=== PATIENT | female | born 1950 | race Caucasian/White ===

== ENCOUNTER 2023-10-17 10:25 | Outpatient (OUT) | payer MEDICARE, OTHER, SELFPAY ==
--- NOTE | 2023-10-17 10:26 | VEIN_ITS ---
Patient Name: JANN FUALKNER MR#: [id number] : 1950 Exam Date: 10/17/2023 Ordering Doctor: MATT DOMINGUEZ RADIOLOGY REPORT PROCEDURE: VC EXT VENOUS REFLUX AYANNA LMTD COMPARISON: None. INDICATIONS: I83.813 Pain due to varicose veins of bilateral legs TECHNIQUE: Duplex imaging of the lower extremity to assess the deep and superficial venous system for the presence of deep or superficial venous incompetence and to document the location and severity of disease. The study includes evaluation of the great saphenous vein (GSV), anterior accessory saphenous vein (AASV) and small saphenous vein (SSV). Patient scanned in reverse Trendelenburg and standing. FINDINGS: RIGHT LOWER EXTREMITY: Saphenofemoral Junction Reflux: Yes 10.4mm 1.6 sec GSV: Diam (mm) Reflux/ Time (sec) Proximal Thigh 6.0 Yes 0.9 Mid Thigh 4.7 Yes 2.3 Distal Thigh 5.0 No Prox Calf 4.6 No Mid Calf 2.4 Yes 1.6 Saphenopopliteal Junction Reflux: 3.2mm No SSV: Proximal Calf 3.0 No Mid Calf 1.9 No AASV: Proximal Thigh 3.8 No Mid Thigh 2.6 No Distal Thigh Thrombi: No acute or chronic thrombus visualized Compressibility: Normal Flow: Normal Preforator: Dist/med calf (area of wound) 3.5mm with 0.8s reflux. Mid/med calf 3.7mm with 1.7s reflux. Tech Note: Incompetent GSV. Patent varicose vein mid/med calf 3.5mm with 2.6s reflux. Patent varicose vein prox/ant 3.2mm with 1.8s reflux. LEFT LOWER EXTREMITY: Saphenofemoral Junction Reflux: Yes 7.3 mm 2.0 sec GSV: Diam (mm) Reflux/Time (sec) Proximal Thigh 6.2 Yes 0.6 Mid Thigh 3.7 No Distal Thigh 4.6 No Prox Calf 4.2 No Mid Calf 1.0 No Saphenopopliteal Junction Relux: 1.6 mm No SSV: Proximal Calf 1.6 No Mid Calf 1.4 No AASV: Proximal Thigh 2.8 Yes 1.1 Mid Thigh 1.8 No Distal Thigh Thrombi: No acute or chronic thrombus visualized Compressibility: Normal Flow: Normal Tractor Trailer Mechanic: Mid/posterior 3.0mm with 0s reflux. Tech Note: Incompetent GSV. Patent mid/med calf 2.0mm with 0s reflux. CONCLUSION: 1. Abnormally dilated and incompetent right great saphenous vein. 2. Dilated and incompetent icing machine operator vein within distal lower right leg corresponding to patient's open wound. Dictated by: Jordi Watters M.D. on 10/17/2023 at 12:25 Approved by: Jordi Watters M.D. on 10/17/2023 at 13:12
--- NOTE | 2023-10-17 10:26 | VEIN_ITS ---
Patient Name: JANN FAULKNER MR#: [id number] : 1950 Exam Date: 10/17/2023 Ordering Doctor: MATT DOMINGUEZ RADIOLOGY REPORT PROCEDURE: FACILITY [facility] - OFFICE VISIT INITIAL COMPARISON: None. PROGRESS NOTES: [age] year old female who presents with a 5 year history of muscle cramping, leg pain, swelling, edema with recent development of slow healing/nonhealing ulcer. The patient's right leg symptoms are worse than the left. There has been a progression of symptoms over time. This increases with prolonged leg dependency. The patient describes an improvement with rest, elevation, sports stockings.. The patient denies any signs and symptoms to suggest arterial ischemia. The patient describes a family history of diabetes mellitus, chronic lung disease, kidney failure. The patient has drinking and smoking history of : None. Patient has a past medical history significant for hypertension, asthma, rheumatoid arthritis. The patient denies a history of deep venous thrombus or pulmonary embolus. See separate history and physical for medication list. No prior treatment for varicose or spider veins. Current use of compression stockings. After review of nurse notes, history and physical exam I discussed at length the pathophysiology of venous hypertension and possible treatments, therapies and strategies available. We discussed at length the importance of elevating the lower extremities above the level of the heart, increased physical activity and compression stocking use. Ultrasound venous reflux study performed today was discussed at length with the patient. The report demonstrates dilating incompetent right great saphenous vein and a dilated an incompetent horticultural nursery assistant vein within distal lower right leg deep to stasis ulcer. PHYSICAL EXAM: The right leg demonstrates no significant varicosities, scattered spider veins, medial lower right leg open ulceration, mild edema, prominent skin discoloration. The left leg demonstrates no significant varicosities, scattered spider veins, no ulceration, mild edema, significant skin discoloration. Both thighs, legs and feet were symmetrically warm to the touch. Good posterior tibial and dorsalis pedis pulses were present bilaterally. VEIN/ Facility [facility] Comprehensive IMPRESSION: 1. Right lower extremity venous insufficiency 2. Right lower extremity varicose veins 3. Bilateral mild lower extremity subcutaneous edema 4. No flow significant arterial disease 5. CEAP: C6, AP, AP, MO PLAN: 1. Continued use of compression stockings 2. Elevated legs and increased physical activity symptomatic relief 3. Endovenous laser ablation of right great saphenous vein and distal lower right extremity horticultural nursery assistant vein. 4. Bilateral lower extremity microfoam chemical ablation. Nurse notes, history and physical were reviewed and confirmed, see attached forms. The nurse was present throughout the physical exam and consultation Dictated by: Jordi Watters M.D. on 10/17/2023 at 13:12 Approved by: Jordi Watters M.D. on 10/17/2023 at 13:27
== END 2023-10-17 10:26 | disposition home or self-care (01) ==
PROVIDERS: PCP Podiatrist Foot & Ankle Surgery; Visit Provider Podiatrist Foot & Ankle Surgery
DX: I83.813 Varicose veins of bilateral lower extremities with pain (principal); Z87.2 Personal history of diseases of the skin and subcutaneous tissue
CPT/HCPCS: 93970; G0463

== ENCOUNTER 2024-03-22 12:57 | Outpatient (OUT) | payer MEDICARE, OTHER, SELFPAY ==
--- NOTE | 2024-03-18 08:42 | P.DS_ITS ---
Discharge Plan Discharge Disposition: Home, Self-Care Outpatient Diagnostics: VC EXT Venous RT LMTD (Routine) Timeframe: 2 Weeks Facility: [facility] - Location: Vein Center Ordered By: Ryan Burris VC Facility EST LMTD (Routine) Timeframe: 2 Weeks Facility: [facility] - Location: Vein Center Ordered By: Ryan Burris VC Endovenous Ablation 1VeinRT (Routine) Timeframe: 2 Weeks Facility: [facility] - Location: Vein Center Ordered By: Ryan Burris Follow Up Appointments: 03/29/2024 Plan of Treatment: f/u evaluation with physician along with right leg limited u/s Patient Instructions: Endovenous Ablation (DC) Print Language: Hungarian Discharge Date/Time: 03/22/24 13:50
--- NOTE | 2024-03-18 08:42 | VEINCLINIC_ITS ---
Vital Signs 03/18/24 08:42 03/22/24 13:08 03/22/24 13:44 Height 5 ft Weight 108.862 kg Waist Circumference 5 ft 6 in BP 150/70 H BP Location Left Brachial BP Position Sitting BP Cuff Size Adult BP Source Manual Cuff Respiration 20 Pulse 102 H Pulse Source Monitor Pulse Oximetry (%) 96 Oxygen Delivery Method Room Air Comment The patient's blood pressure is elevated. Varicose Veins Patient is a 73 year old female with c/o leg pain, swelling, and muscle cramps. Symptoms are bilateral right leg > left leg. Pain rated at a 2 on a scale of 1-10. Onset 5 years ago. Patient has worn bilateral leg knee high compression stockings in August of 2023 secondary to a bout with cellulitis along with a non- healing wound to right lower leg. thigh: bilateral (right> left leg), knee: bilateral, calf: bilateral, ankle: bilateral and shafer: bilateral aching, cramping, dull and tender 2 5 years Worsened in recent months: Yes standing and walking analgesics, elevating extremities, compression stockings and exercise Reports muscle spasms of leg, fatigue, heaviness, limb pain, edema and leg edema History of lower extremity trauma: No Superficial thrombophlebitis: No Family history of varicose veins: yes Has patient had previous lower extremity venous surgery: No Patient has previously received the following treatment(s) for lower extremity varicose veins: Reports none Does patient have a history of : yes Does patient intend to have future pregnancies: no Has patient had lower extremity venous scan with relux testing: Yes Support hose used: Yes Problems walking or doing physical activity: Yes How does it affect you: often has to stop activity rest and elevate Do you walk much: Yes Do you stand much: Yes Review of Systems ROS Narrative I, Ryan Burris MD personally performed the services described in this documentation, as scribed by Maciel Hall RN in my presence and it is both accurate and complete. I, Maciel Hall RN, am scribing for, and in the presence of, Dr. Ryan Burris and in the presence of the patient. Status of ROS 10 or more systems reviewed and unremark able except as noted in history and below Cardiovascular Reports: edema Integumentary/Breast Reports: itching, redness, skin pain, skin tenderness, skin swelling, new lesion, changing lesion, non-healing lesion and changes in skin color Neurological Reports: numbness in extremities and weakness in extremities Hematologic/Lymphatic Reports: easy bruising and easy bleeding PFSH PFSH Medical History (Updated 03/18/24 @ 08:50 by Maciel Hall) Osteoarthritis ?M19.90 - Unspecified osteoarthritis, unspecified site (ICD-10) Rheumatoid arthritis ?M06.9 - Rheumatoid arthritis, unspecified (ICD-10) Coronary artery disease ?I25.10 - Atherosclerotic heart disease of [place] coronary artery without angina pectoris (ICD-10) Asthma ?J45.909 - Unspecified asthma, uncomplicated (ICD-10) Hypertension ?I10 - Essential (primary) hypertension (ICD-10) Varicose veins of bilateral lower extremities with pain ?I83.813 - Varicose veins of bilateral lower extremities with pain (ICD-10) Surgical History (Updated 03/22/24 @ 13:41 by Maciel Hall) Status post laser ablation of incompetent vein ?Z98.890 - Other specified postprocedural states (ICD-10) History of tonsillectomy and adenoidectomy ?Z90.89 - Acquired absence of other organs (ICD-10) History of bilateral knee replacement ?Z96.653 - Presence of artificial knee joint, bilateral (ICD-10) History of appendectomy ?Z90.49 - Acquired absence of other specified parts of digestive tract (ICD- 10) H/O: hysterectomy ?Z90.710 - Acquired absence of both cervix and uterus (ICD-10) Family History (Updated 03/18/24 @ 08:52 by Maciel Hall) Other Family history of COPD (chronic obstructive pulmonary disease) Family history of diabetes mellitus Kidney failure Social History (Updated 03/18/24 @ 08:52 by Maciel Hall) Within the past year, how often did you have a drink containing alcohol: never Score interpretation: A score less than 3 is consistent with normal alcohol consumption. Smoking status: Never smoker Non-prescribed substance use: denies use Meds Home Medications and Allergies Home Medications ?Medication ?Instructions ?Recorded ?Confirmed ?Type amlodipine 10 mg tablet 10 mg PO DAILY 03/18/24 03/18/24 History calcium tab PO 03/18/24 History carbonate,citrate-magnesium oxide 200 mg calcium-50 mg tablet folic acid 1 mg tablet 1,000 mcg PO DAILY 03/18/24 03/18/24 History furosemide 20 mg tablet (Lasix) 20 mg PO DAILY 03/18/24 03/18/24 History lisinopril 20 mg tablet 10 mg PO DAILY 03/18/24 03/18/24 History meloxicam 15 mg tablet 15 mg PO DAILY 03/18/24 03/18/24 History methotrexate 2.5 mg/mL oral 2.5 mg PO DAILY 03/18/24 03/18/24 History solution ofloxacin .Route 03/18/24 History potassium chloride 10 mEq 10 meq PO DAILY 03/18/24 03/18/24 History tablet,extended release (Klor-Con) Allergies Allergy/AdvReac Type Severity Reaction Status Date / Time sulfamethoxazole Allergy Intermediate Unknown Verified 03/18/24 08:58 [From Bactrim] trimethoprim [From Bactrim] Allergy Intermediate Unknown Verified 03/18/24 08:58 loracarbef [From Lorabid] Allergy Unknown Verified 03/18/24 08:58 statins Allergy Intermediate Joint Pain Uncoded 03/18/24 08:58 Exam Narrative Exam Narrative: Right mid medial lower leg ulcer 2cmx1.5cmx0.5cm reddened, well approximated with no drainage noted. Ryan Crystal MD personally performed the services described in this documentation, as scribed by Maciel Hall RN in my presence and it is both accurate and complete. Maciel Crystal RN, am scribing for, and in the presence of, Dr. Ryan Burris and in the presence of the patient. Constitutional Documenting provider has reviewed patient's vital signs: yes Common normals: oriented x3 Nutritional appearance: overweight Cardio Peripheral pulses: posterior tibial pulses present and dorsalis pedis pulses present Extremity Common normals: normal capillary refill General: calf tenderness and edema Right lower extremity: lower leg Right lower leg: inspection and palpation Left lower extremity: lower leg Left lower leg: inspection and palpation Neuro Common normals: oriented x3 Assessment and Plan Assessment and Plan (1) Varicose veins of bilateral lower extremities with pain: Plan f/u evaluation with physician along with right leg limited u/s Ryan Crystal MD personally performed the services described in this documentation, as scribed by Maciel Hall RN in my presence and it is both accurate and complete. Maciel Crystal RN, am scribing for, and in the presence of, Dr. Ryan Burris and in the presence of the patient. Procedures Procedure Instructions Procedures Plan of care: Risks and benefits of the procedure were discussed at length and informed written consent was obtained.? Time-out completed for verification of correct patient, procedure and site.? Staff present during time-out: Maciel Hall RN,? Ryan Burris MD, Maribell Freire RDMS. Time Out Time__1348 Patient prepped and procedure performed in usual sterile fashion. Risk of injury related to use of Diode laser and/or laser devices? __CR___ ? Serial number of laser used :? [id number] Control panel self test performed, electrical cords in good condition, floor is dry, basin of water available, fire extinguisher in close proximity_CR__ Polycarbonate goggles available and Laser warning signs outside of doors___CR__ Eye protection provided to patient and staff in room_CR___ Use of laser retardant drapes and dull blackened instruments as directed__CR___ Use of nonflammable prep solutions and use of saline soaked sponges to protect tissues as indicated _CR___ Length __50 cm Laser operated by _Dr. Burris Physician verbal confirmation laser locked in place__CR__ Laser start time (date and time) _03/22/2024@__1359 Laser stop time(date and time) __03/22/2024@__1405 Clark _8.0___ Average laser use __2385 Joules Average laser use_298 seconds Pulse continuous ___CR_? Pulse intermittent ___ Amount of Tumescent used _275cc Evaluated patient for signs and symptoms of electrical injury __CR___ ? Skin clear at insertion site __CR___ Patient tolerated procedure well.? Right leg Coban dressing applied to access site.? Applied right thigh high leg compression stocking. Will return on 03/29/2024 for right leg limited venous ultrasound and exam.
[2024-03-22] MEDS: LIDOCAINE HCL 1% 100 MG/10 ML MDV INJ (13:00)
[2024-03-22] MEDS: 0.9 % SODIUM CHLORIDE 500 ML, LIDOCAINE HCL 20 ML, SODIUM BICARBONATE 10 MEQ INJ (13:00)
--- NOTE | 2024-03-22 13:03 | VEIN_ITS ---
The [address] [address] Patient Name: JANN FAULKNER MRN: [id number] date: 1950 Sex: F Assigned Patient Location: Current Patient Location: Accession/Order Number: [id number] Exam Date: 03/22/2024 13:07 Report Date: 03/22/2024 14:52 At the request of: SLADE HARGROVE Procedure: VC Endovenous Ablation 1VeinRT EXAMINATION: VC Endovenous Ablation 1Vein right great saphenous vein HISTORY: I83.813 Bilateral leg painful varicose veins COMPARISON: No relevant comparison available. TECHNIQUE: The risks and benefits of the procedure had been previously discussed, and were rediscussed at length. Informed written consent was obtained. Maribell Freire and Maciel Hall assisted. Time out procedure was performed. The right lower extremity was prepared and draped in the usual sterile fashion to allow knee flexion in the sterile field. Duplex ultrasound probe was draped in a sterile cover, sterile transmission gel was used. Venous mapping was performed with the areas of dilation and large tributaries marked. The total length was 50 cm from the entry mid calf to 3 cm below the saphenofemoral junction. The diameter of the greater saphenous vein ranged from 5-7 mm. A 30 gauge needle and 1% buffered lidocaine was used to anesthetize the entry site. A 4 mm incision was made with a scalpel and the saphenous vein was entered percutaneously under direct ultrasound guidance with a micropuncture set, a single stick was successful in gaining access. A micro-guide wire was inserted and the needle removed. A micro-set including a dilator was inserted over the microwire and the needle and dilator were removed. A 0.018 guide wire was inserted through the micro-set and threaded through the saphenous vein to the saphenofemoral junction. The dilator was removed and an introducer sheath was inserted over the wire until the end of the sheath entered the saphenofemoral junction. The dilator and wire were removed and the 600 micron fiber was introduced and placed and positioned so that it extended beyond the sheath and was 3 cm peripheral to the saphenofemoral femoral junction. Final position of the fiber was determined by ultrasound guidance and duplex imaging. Tumescent anesthetic was delivered by ultrasound guidance. 275 cc of fluid was delivered along the entire course of the saphenous vein. The solution consisted of 1000 cc of normal saline with 40 mL of 1% lidocaine and 20 mL of sodium bicarbonate. A final positioning check was made. The energy source was turned on by means of the foot pedal and the fiber and sheath were withdrawn. The total number of Joules delivered was 2385. The laser was active for 298 seconds under continuous pulse, average laser use of 8 J. Laser start time 1:59 PM 03/22/2024 . Laser stop time 2:05 PM 03/22/2024 . A duplex ultrasound revealed compressibility and flow at the saphenofemoral junction immediately after the procedure. Hemostasis at the access site was achieved. The skin incision of the saphenous vein was closed with a 4 x 4. A compression stocking was applied. Postop instructions were given. A follow up appointment was recommended and scheduled. The patient tolerated the procedure well and was discharged in good condition . VEIN/VC Endovenous Ablation 1VeinRT IMPRESSION: Technically successful endovenous laser ablation right great saphenous vein Electronically authenticated by: SLADE HARGROVE Date: 03/22/2024 14:52
[2024-03-22 13:08] VITALS: BP 150/70; PULSE 102; O2SAT 96
== END 2024-03-22 13:50 | disposition home or self-care (01) ==
LOC: VC 12:58
PROVIDERS: PCP Radiology Diagnostic Radiology; Visit Provider Radiology Diagnostic Radiology
DX: I83.813 Varicose veins of bilateral lower extremities with pain (principal)
CPT/HCPCS: 36478

== ENCOUNTER 2024-03-29 11:20 | Outpatient (OUT) | payer MEDICARE, OTHER, SELFPAY ==
--- NOTE | 2024-03-29 07:34 | V.VEINS.HP ---
Vital Signs 03/29/24 11:35 Height 5 ft Weight 108 kg BMI 46.5 Varicose Veins Patient in today for follow up ultrasound of right lower extremity following EVLT of right GSV completed on 03/22/24. Jordi Crystal MD personally performed the services described in this documentation, as scribed by Maribell Freire RDMS in my presence and it is both accurate and complete. Maribell Crystal RDMS, am scribing for, and in the presence of, Dr. Patti Watters and in the presence of the patient. thigh: bilateral (right> left leg), knee: bilateral, calf: bilateral, ankle: bilateral and shafer: bilateral aching, cramping, dull and tender 2 5 years Worsened in recent months: Yes standing and walking analgesics, elevating extremities, compression stockings and exercise Reports muscle spasms of leg, fatigue, heaviness, limb pain, edema and leg edema History of lower extremity trauma: No Superficial thrombophlebitis: No Family history of varicose veins: yes Has patient had previous lower extremity venous surgery: No Patient has previously received the following treatment(s) for lower extremity varicose veins: Reports none Does patient have a history of : yes Does patient intend to have future pregnancies: no Has patient had lower extremity venous scan with relux testing: Yes Support hose used: Yes Problems walking or doing physical activity: Yes How does it affect you: often has to stop activity rest and elevate Do you walk much: Yes Do you stand much: Yes Review of Systems ROS Narrative Jordi Crystal MD personally performed the services described in this documentation, as scribed by Maribell Freire RDMS in my presence and it is both accurate and complete. Maribell Crystal RDMS, am scribing for, and in the presence of, Dr. Patti Watters and in the presence of the patient. Status of ROS 10 or more systems reviewed and unremarkable except as noted in history and below Cardiovascular Reports: edema Integumentary/Breast Reports: itching, redness, skin pain, skin tenderness, skin swelling, new lesion, changing lesion, non-healing lesion and changes in skin color Neurological Reports: numbness in extremities and weakness in extremities Hematologic/Lymphatic Reports: easy bruising and easy bleeding PFSH [facility] Medical History (Updated 03/29/24 @ 08:11 by Maribell Freire) Phlebitis and thrombophlebitis of superficial vessels of right lower extremity ?I80.01 - Phlebitis and thrombophlebitis of superficial vessels of right lower extremity (ICD-10) Osteoarthritis ?M19.90 - Unspecified osteoarthritis, unspecified site (ICD-10) Rheumatoid arthritis ?M06.9 - Rheumatoid arthritis, unspecified (ICD-10) Coronary artery disease ?I25.10 - Atherosclerotic heart disease of [place] coronary artery without angina pectoris (ICD-10) Asthma ?J45.909 - Unspecified asthma, uncomplicated (ICD-10) Hypertension ?I10 - Essential (primary) hypertension (ICD-10) Varicose veins of bilateral lower extremities with pain ?I83.813 - Varicose veins of bilateral lower extremities with pain (ICD-10) Surgical History (Updated 03/22/24 @ 13:41 by Maciel Hall) Status post laser ablation of incompetent vein ?Z98.890 - Other specified postprocedural states (ICD-10) History of tonsillectomy and adenoidectomy ?Z90.89 - Acquired absence of other organs (ICD-10) History of bilateral knee replacement ?Z96.653 - Presence of artificial knee joint, bilateral (ICD-10) History of appendectomy ?Z90.49 - Acquired absence of other specified parts of digestive tract (ICD-10) H/O: hysterectomy ?Z90.710 - Acquired absence of both cervix and uterus (ICD-10) Family History (Updated 03/18/24 @ 08:52 by Maciel Hall) Other Family history of COPD (chronic obstructive pulmonary disease) Family history of diabetes mellitus Kidney failure Social History (Updated 03/18/24 @ 08:52 by Maciel Hall) Within the past year, how often did you have a drink containing alcohol: never Score interpretation: A score less than 3 is consistent with normal alcohol consumption. Smoking status: Never smoker Non-prescribed substance use: denies use Meds Home Medications and Allergies Home Medications ?Medication ?Instructions ?Recorded ?Confirmed ?Type amlodipine 10 mg tablet 10 mg PO DAILY 03/18/24 03/18/24 History calcium tab PO 03/18/24 History carbonate,citrate-magnesium oxide 200 mg calcium-50 mg tablet folic acid 1 mg tablet 1,000 mcg PO DAILY 03/18/24 03/18/24 History furosemide 20 mg tablet (Lasix) 20 mg PO DAILY 03/18/24 03/18/24 History lisinopril 20 mg tablet 10 mg PO DAILY 03/18/24 03/18/24 History meloxicam 15 mg tablet 15 mg PO DAILY 03/18/24 03/18/24 History methotrexate 2.5 mg/mL oral 2.5 mg PO DAILY 03/18/24 03/18/24 History solution ofloxacin .Route 03/18/24 History potassium chloride 10 mEq 10 meq PO DAILY 03/18/24 03/18/24 History tablet,extended release (Klor-Con) Allergies Allergy/AdvReac Type Severity Reaction Status Date / Time sulfamethoxazole Allergy Intermediate Unknown Verified 03/18/24 08:58 [From Bactrim] trimethoprim [From Bactrim] Allergy Intermediate Unknown Verified 03/18/24 08:58 loracarbef [From Lorabid] Allergy Unknown Verified 03/18/24 08:58 statins Allergy Intermediate Joint Pain Uncoded 03/18/24 08:58 Exam Narrative Exam Narrative: Jordi Crystal MD personally performed the services described in this documentation, as scribed by Maribell Freire RDMS in my presence and it is both accurate and complete. Maribell Crystal RDMS, am scribing for, and in the presence of, Dr. Patti Watters and in the presence of the patient. Results Imaging Venous US: Radiologist's impression: Heat induced thrombus in right GSV 1.8 cm from SFJ and extends to mid lower leg. Jordi Crystal MD personally performed the services described in this documentation, as scribed by Maribell rFeire RDMS in my presence and it is both accurate and complete. Maribell Crystal RDMS, am scribing for, and in the presence of, Dr. Patti Watters and in the presence of the patient. Assessment and Plan Assessment and Plan (1) Phlebitis and thrombophlebitis of superficial vessels of right lower extremity: Plan Plan is for patient to return for EVLT of right leg perforators on 04/19/24. Jordi Crystal MD personally performed the services described in this documentation, as scribed by Maribell Freire RDMS in my presence and it is both accurate and complete. I, Maribell Freire RDMS, am scribing for, and in the presence of, Dr. Patti Watters and in the presence of the patient.
--- NOTE | 2024-03-29 11:23 | VEIN_ITS ---
Patient Name: JANN FAULKNER MR#: [id number] : 1950 Exam Date: 03/29/2024 Ordering Doctor: DR SLADE HARGROVE M.D. RADIOLOGY REPORT PROCEDURE: VC EXT VENOUS RT LMTD COMPARISON: None. INDICATIONS: I80.02 - Phlebitis and thrombophlebitis of superficial veins right leg TECHNIQUE: Lower extremity almanza scale and Duplex Doppler evaluation of the deep venous system from the inguinal ligament through the calf veins. FINDINGS: REGION: Right lower extremity. THROMBI: Negative for DVT. Heat induced thrombus in right GSV and AASV 1.8 cm from SFJ and extends into mid lower leg. COMPRESSIBILITY: Non-compressible segments corresponding to thrombus FLOW: Areas of no flow corresponding to thrombus OTHER: Unable to visualize mid-distal lower leg due to dressing from skin graft. CONCLUSION: 1. Successful post ablation occlusion of right great saphenous vein. Dictated by: Jordi Watters M.D. on 03/29/2024 at 14:12 Approved by: Jordi Watters M.D. on 03/29/2024 at 14:14
--- NOTE | 2024-03-29 11:23 | VEIN_ITS ---
Patient Name: JANN FAULKNER MR#: [id number] : 1950 Exam Date: 03/29/2024 Ordering Doctor: DR SLADE HARGROVE M.D. RADIOLOGY REPORT PROCEDURE: FACILITY EST [facility] - OFFICE VISIT FOLLOW UP COMPARISON: None. PROGRESS NOTES: The patient reports improvement in leg symptoms. There has been interval reduction in varicosities. The patient has followed our recommendations to walk 20-30 minutes once or twice per day since the procedure. Physical exam demonstrates decrease in varicosities of the leg. Persistent varicose veins are identified along the lower extremities bilaterally. Review of the ultrasound performed the same day demonstrates occlusive thrombus extending throughout the treated vein(s), see separate report, consistent with a successful ablation. No thrombus extending into or beyond the saphenofemoral junction. The patient expressed a desire to proceed with treatment of remaining incompetent varicosities. The patient was informed that treatment was a process and would require several procedures/sessions. VEIN/[facility] EST TD IMPRESSION: 1. Successful ablation of the right great saphenous vein(s). 2. Persistent varicose veins and lower extremity symptoms. PLAN: 1. Patient underwent skin graft of lower left leg 2 days ago. Patient is in need of endovenous laser ablation of cafeteria director veins within the same area. Treatment of the veins we delayed allowing the skin graft to establish. Intravenous laser ablation of lower left leg cafeteria director veins will be scheduled for 3 weeks from now, with evaluation and possible postponement at that time depending on how patient is progressing with skin graft. Nurse notes, history and physical were reviewed and confirmed, see attached forms. The nurse was present throughout the physical exam and consultation Dictated by: Jordi Watters M.D. on 03/29/2024 at 14:15 Approved by: Jordi Watters M.D. on 03/29/2024 at 14:17
--- OUTSIDE RECORDS SUMMARY | 2024-03-29 11:26 | XMS_ITS | CCD ---
Author Organization [facility] Care Team Providers Care Solar Project Manager Name Role Phone Ryan Fuentes Primary Care Provider Tequila Smith Attending Provider [phone] [address] Attending Provider Ryan Fuentes Attending Provider MD Ryan Fuentes Primary Care Provider SALVATORE Smith Attending Provider MD Ryan Fuentes Primary Care Provider ALEXIA Forman Attending Provider MD Ryan Fuentes Primary Care Provider ALEXIA Forman Attending Provider MD Ryan Fuentes Primary Care Provider ALEXIA Forman Attending Provider MD Ryan Fuentes Primary Care Provider MD Ryan Fuentes Referring Provider [phone] BENJAMIN Schrader Attending Provider [phone] Nicole Schrader Admitting Unavailable Nicole Schrader Attending Unavailable Ryan Fuentes Primary Care Unavailable Ryan Fuentes Referring Unavailable ObVerna simon Attending Unavailable Ryan Fuentes Primary Care Unavailable ObVerna simon Admitting Unavailable Dolce, Abhishek R Attending Unavailable Ryan Fuentes Primary Care Unavailable Dolce, Abhihsek R Admitting Unavailable Dolce, Abhishek R Attending Unavailable Dolce, Abhishek R Admitting Unavailable Alfredo, Ryan Leach Primary Care Unavailable Alfredo, Ryan Leach Primary Care Unavailable Alfredo, Ryan Leach Admitting Unavailable Alfredo, Ryan Leach Attending Unavailable Alfredo, Ryan Leach Primary Care Unavailable Alfredo, Ryan Leach Attending Unavailable Alfredo, Ryan Leach Admitting Unavailable Alfredo, Ryan Leach Primary Care Unavailable Alfredo, Ryan Leach Attending Unavailable Alfredo, Ryan Leach Admitting Unavailable Seema, Nico K Attending Unavailable Alfredo, yRan Leach Primary Care Unavailable Le, Nico K Admitting Unavailable Schrader, CHELI Rivera Attending Unavailable Schrader, CHELI Rivera Admitting Unavailable Alfredo, Ryan Leach Primary Care Unavailable Dolce, Abhishek R Attending Unavailable Alfredo, Ryan Leach Primary Care Unavailable Dolce, Abhishek R Admitting Unavailable Dolce, Abhishek R Admitting Unavailable Alfredo, Ryan Leach Primary Care Unavailable Dolce, Abhishek R Attending Unavailable Dolce, Abhishek R Attending Unavailable Dolce, Abhishek R Admitting Unavailable Alfredo, Ryan Leach Primary Care Unavailable Dolce, Abhishek R Attending Unavailable Dolce, Abhishek R Admitting Unavailable Alfredo, Ryan Leach Primary Care Unavailable Dolce, Abhishek R Admitting Unavailable Alfredo, Ryan Leach Primary Care Unavailable Dolce, Abhishek R Attending Unavailable Dolce, Abhishek R Admitting Unavailable Alfredo, Ryan Leach Primary Care Unavailable Dolce, Abhishek R Attending Unavailable Dolce, Abhishek R Admitting Unavailable Alfredo, Ryan Leach Primary Care Unavailable Dolce, Abhishek R Attending Unavailable Dolce, Abhishek R Attending Unavailable Dolce, Abhishek R Admitting Unavailable Alfredo, Ryan Leach Primary Care Unavailable Alfredo, Ryan Leach Primary Care Unavailable Alfredo, Ryan Leach Attending Unavailable Alfredo, Ryan Leach Primary Care Unavailable Alfredo, Ryan Leach Attending Unavailable Alfredo, Ryan Leach Primary Care Unavailable Alfredo, Ryan Leach Attending Unavailable Alfredo, Ryan Leach Primary Care Unavailable Alfredo, Ryan Leach Attending Unavailable Alfredo, Ryan Leach Primary Care Unavailable Alfredo, Ryan Leach Attending Unavailable Alfredo, Ryan Leach Admitting Unavailable Alfredo, Ryan Leach Primary Care Unavailable Alfredo, Ryan Leach Attending Unavailable Dolce, Abhishek R Attending Unavailable Dolce, Abhishek R Admitting Unavailable Alfredo, Ryan Leach Primary Care Unavailable Dolce, Abhishek R Attending Unavailable Dolce, Abhishek R Admitting Unavailable AlfredoRyan Primary Care Unavailable CHELI Schrader Admitting Unavailable CHELI Schrader Attending Unavailable AlfredoRyan zapata Primary Care Unavailable Dolce, Abhishek R Attending Unavailable AlfredoRyan Primary Care Unavailable Dolce, Abhishek R Admitting Unavailable Dolce, Abhishek R Admitting Unavailable Alfredo, Ryan Leach Primary Care Unavailable Dolce, Abhishek R Attending Unavailable Dolce, Abhishek R Admitting Unavailable Alfredo, Ryan Leach Primary Care Unavailable Dolce, Abhishek R Attending Unavailable CHELI Schrader Attending Unavailable CHELI Schrader Admitting Unavailable AlfredoRyan Primary Care Unavailable Dolce, Abhishek R Admitting Unavailable Alfredo, Ryan Leach Primary Care Unavailable Dolce, Abhishek R Attending Unavailable Dolce, Abhishek R Attending Unavailable Dolce, Abhishek R Admitting Unavailable AlfredoRyan Primary Care Unavailable Dolce, Abhishek R Attending Unavailable Dolce, Abhishek R Admitting Unavailable AlfredoRyan zapata Primary Care Unavailable Dolce, Abhishek R Attending Unavailable AlfredoRyan Primary Care Unavailable Dolce, Abhishek R Admitting Unavailable CHELI Schrader Attending Unavailable CHELI Schrader Admitting Unavailable AlfredoRyan Primary Care Unavailable Dolce, Abhishek R Admitting Unavailable AlfredoRyan Primary Care Unavailable Dolce, Abhishek R Attending Unavailable Dolce, Abhishek R Admitting Unavailable AlfredoRyan Primary Care Unavailable Dolce, Abhishek R Attending Unavailable Dolce, Abhishek R Admitting Unavailable AlfredoRyan Primary Care Unavailable Dolce, Abhishek R Attending Unavailable Dolce, Abhishek R Admitting Unavailable AlfredoRyan Primary Care Unavailable Dolce, Abhishek R Attending Unavailable Dolce, Abhishek R Admitting Unavailable AlfredoRyan zapata Primary Care Unavailable Dolce, Abhishek R Attending Unavailable CHELI Schrader Attending Unavailable CHELI Schrader Admitting Unavailable AlfredoRyan zapata Primary Care Unavailable Dolce, Abhishek R Admitting Unavailable AlfredoRyan zapata Primary Care Unavailable Dolce, Abhishek R Attending Unavailable AlfredoRyan zapata Primary Care Unavailable AlfredoRyan zapata Admitting Unavailable AlfredoRyan zapata Attending Unavailable AlfredoRyan Primary Care Unavailable AlfredoRyan Attending Unavailable AlfredoRyan A Admitting Unavailable Dolce, Abhishek R Attending Unavailable Alfredo Enrique Primary Care Unavailable Dolce, Abhishek R Admitting Unavailable Dolce, Abhishek R Admitting Unavailable Alfredo Enrique Primary Care Unavailable Dolce, Abhishek R Attending Unavailable CHELI Schrader Attending Unavailable Ryan Fuentes Primary Care Unavailable CHELI Schrader Admitting Unavailable Mahendra Lundy Attending Unavailable Mahendra Lundy Admitting Unavailable Ryan Fuentes Primary Care Unavailable Ryan Fuentes Primary Care Unavailable Ryan Fuentes Attending Unavailable CHELI Schrader Admitting Unavailable CHELI Schrader Attending Unavailable Alfredo Ryan Leach Primary Care Unavailable Alfredo Enrique Primary Care Unavailable Alfredo Ryan Leach Attending Unavailable Alfredo Enrique Primary Care Unavailable Dolce, Abhishek R Admitting Unavailable Dolce, Abihshek R Attending Unavailable Allergies Allergy Classification Reported Allergen(s) Allergy Type Date of Onset Reaction(s) Facility Adhesive Tape (1 source) Adhesive Tape Substance Allergy 1 [facility] Cephalosporins (antibiotic) (1 source) loracarbef Drug Allergy 1 [facility] Latex (1 source) Latex Substance Allergy 1 [facility] Quinolones (antibiotic) (1 source) levoFLOXacin Drug Allergy 1 Cramping of the Muscles [facility] Unclassified (7 sources) Bfdiejv-Mvi-Gqf Reductase Inhibitor; Translations: [Awbnsma-BGJ-AtM Reductase Inhibitor] Allergy to substance 1 Cramping of the Muscles [facility] (6 sources) Adhesive Tape; Translations: [adhesive tape] Allergy to substance 1 Hives, Hives, silk tape [facility] (7 sources) Latex; Translations: [latex] Allergy to substance 1 [facility] (6 sources) levoFLOXacin; Translations: [levofloxacin] Drug Allergy 1 Cramping of the Muscles [facility] (6 sources) loracarbef; Translations: [loracarbef] Drug Allergy 1 [facility] (1 source) Urea Drug Allergy 1 [facility] (1 source) gatifloxacin; Translations: [Tequin] Drug Allergy [facility] (1 source) Hmg-Coa Reductase Inhibitors (Statins); Translations: [statins] Propensity to adverse reactions to drug (disorder) [facility] (1 source) loracarbef; Translations: [Lorabid] Drug Allergy [facility] (1 source) rosuvastatin; Translations: [Crestor] Drug Allergy [facility] Medications Current Medications Medication Drug Class(es) Dates Sig (Normalized) Sig (Original) acetaminophen 325 mg / HYDROcodone bitartrate 5 mg oral tablet (5 sources) Opioid Agonist Start: 1 take 1 tablet by mouth every four to six hours Hydrocodone-Acet aminophen Active 1 - 2 TAB PO EVERY 4-6 HOURS 45 December 14, 2020 amLODIPine 10 mg oral tablet (6 sources) Dihydropyridine Calcium Channel Radha Start: 8 take 10 mg by mouth once daily in the morning Amlodipine Active 10 MG PO Every morning April 22, 2018 12:00am ascorbic acid 500 mg oral tablet (6 sources) Vitamin C Start: 8 take 1 tablet by mouth once daily in the morning Ascorbic Acid (Vitamin C) (Vitamin C) 500 mg Tablet Active 500 MG PO Every morning April 22, 2018 12:00am calcium carbonate 1500 mg oral tablet (6 sources) Start: 8 take 1 tablet by mouth once daily in the morning Calcium Carbonate (Calcium 600) 600 mg calcium (1,500 mg) Tablet Active 600 MG PO Every morning April 22, 2018 12:00am doxycycline hyclate 100 mg oral tablet (5 sources) Tetracycline-class Drug Start: 1 take 100 mg by mouth twice daily Doxycycline Hyclate Active 100 MG PO Twice daily 10 December 14, 2020 12:00am ezetimibe 10 mg oral tablet (6 sources) Dietary Cholesterol Absorption Inhibitor Start: 8 take 1 tablet by mouth once daily in the morning Ezetimibe (Zetia) 10 mg tablet Active 10 MG PO Every morning April 22, 2018 12:00am folic acid 1 mg oral tablet (6 sources) Start: 8 take 1 mg by mouth once daily in the morning Folic Acid Active 1 MG PO Every morning April 22, 2018 12:00am hydroCHLOROthiazide 25 mg / lisinopril 20 mg oral tablet (6 sources) Thiazide Diuretic, Angiotensin Converting Enzyme Inhibitor Start: 8 take 1 tablet by mouth once daily in the morning Lisinopril-[place] chlorothiazide Active 1 TAB PO Every morning April 22, 2018 12:00am meloxicam 15 mg oral tablet (6 sources) Nonsteroidal Anti-inflammatory Drug Start: 8 take 1 tablet by mouth once daily in the morning Meloxicam Active 1 TAB PO Every morning April 22, 2018 12:00am methotrexate 2.5 mg oral tablet (6 sources) Folate Analog Metabolic Inhibitor Start: 8 take 17.5 mg by mouth every week Methotrexate Sodium Active 17.5 MG PO every week April 22, 2018 12:00am takes on fridays Xgucaujhcvtz-Tik-Mvnh-Fa -Vit K (Multi-Day Plus Minerals) 18 mg iron-400 mcg-25 mcg Tablet (6 sources) Start: 8 take 1 tablet by mouth once daily in the morning Multivitamin-Min -Iron-Fa-Vit K (Multi-Day Plus Minerals) 18 mg iron-400 mcg-25 mcg Tablet Active 1 TAB PO Every morning April 22, 2018 2:24pm Start: 04-22-2018 [facility] in [facility] morning Ykduadsagmuz-Roj-Hphf-Fa-Vit K (Multi-Da y Plus Minerals) 18 mg iron-400 mcg-25 mcg Tablet Active 1 TAB PO Every morning April 21, 2018 11:00pm Start: 04-22-2018 take 1 tablet by barbara once daily in the morning Zvwxjeuwykye-Hki-Usvi-Fa-Vit K (Multi-Da y Plus Minerals) 18 mg iron-400 mcg-25 mcg Tablet Active 1 TAB PO Every morning April 22, 2018 12:00am [place] 0-Bwd-Sqd-Fish Oil (Fish Oil) 1,000 mg (120 mg-180 mg) Capsule (6 sources) Start: 04-22-2018 take 1 capsule by mouth once daily in the morning [place] 9-Tzo-Opw-Fish Oil (Fish Oil) 1,000 mg (120 mg-180 mg) Capsule Active 1 CAP PO Every morning April 22, 2018 2:24pm Start: 04-22-2018 take 1 capsule by mo [facility] once daily in the morning [place] 0-Lsc-Kmo-Fish Oil (Fish Oil) 1,000 mg (120 mg-180 mg) Capsule Active 1 CAP PO Every morning April 21, 2018 11:00pm Start: 04-22-2018 take 1 capsule by mo uth once daily in the morning [place] 6-Dnj-Tay-Fish Oil (Fish Oil) 1,000 mg (120 mg-180 mg) Capsule Active 1 CAP PO Every morning April 22, 2018 12:00am Completed/Discontinued Medications Medication Drug Class(es) Dates Sig (Normalized) Sig (Original) furosemide 20 mg oral tablet (6 sources) Loop Diuretic Start: 04-22-2018 End: 12-06-2020 take 20 mg by mouth once daily Furosemide Discontinued 20 MG PO Daily April 22, 2018 12:00am December 06, 2020 12:23pm levoFLOXacin 500 mg oral tablet (6 sources) Quinolone Antimicrobial Start: 04-27-2018 End: 05-07-2018 take 1 tablet by mouth once daily Levofloxacin (Levaquin) 500 mg tablet Discontinued 500 MG PO Daily 04 08April 27, 2018 12:00am May 07, 2018 1:02am Problems Problem Classification Problem Date Documented Date Episodic/Chronic Chronic ulcer of skin (6 sources) Ulcer; Translations: [Ulcerative lesion] 04-22-2018 Chronic Other diseases of veins and lymphatics (6 sources) Venous insufficiency of leg; Translations: [Other specified disorders of veins] 05-11-2018 Episodic Other infections; including parasitic (6 sources) Disorder due to infection; Translations: [Unspecified infectious disease] 05-11-2018 Episodic Other nervous system disorders (5 sources) Pain in limb; Translations: [Other acute postprocedural pain] 12-14-2020 Episodic Other nutritional; endocrine; and metabolic disorders (6 sources) Obesity; Translations: [Obesity, unspecified] 05-11-2018 Chronic Residual codes; unclassified (6 sources) Edema of lower extremity; Translations: [Localized edema] 04-22-2018 Episodic Sprains and strains (5 sources) Disorder of hand; Translations: [Sprain of metacarpophalangeal joint of unspecified finger, initial encounter] 12-14-2020 Episodic Unclassified (1 source) Rheumatoid arthritis with rheumatoid factor of multiple sites without organ or systems involvement; Translations: [Rheumatoid arthritis with rheumatoid factor of multiple sites without organ or systems involvement] Onset: 3 Results Test Name Value Interpretation Reference Range Facility Coding Summaryon 03-25-2024 Coding Summary [facility] Wound Care Noteon 03-22-2024 Wound Care Note [id number]#[facility]-18-[facility]24 Coding Summary [facility] Coding Summaryon 03-16-2024 Coding Summary [facility] Coding Summaryon 03-12-2024 Coding Summary [facility] Wound Care Noteon 03-08-2024 Wound Care Note [id number]#1.0 [facility] 03-03-2024 Coding Summary [facility] Wound Care Noteon 03-02-2024 Wound Care Note [id number]#1.00 [facility] 02-23-2024 Wound Care Note [id number]#[facility].00 [facility]-19-[facility]24 Coding Summary [facility] Coding Summaryon 02-10-2024 Coding Summary [facility] Wound Care Noteon 02-09-2024 Wound Care Note [id number]#1.00 [facility] 02-02-2024 Wound Care Note [id number]#1.00 [facility] 01-29-2024 Coding Summary [facility] Coding Summaryon 01-26-2024 Coding Summary [facility] Wound Care Noteon 01-26-2024 Wound Care Note [id number]#1.00 [facility] 01-19-2024 Wound Care Note [id number]#1.0 0OT[facility]IFF [facility] Wound Care Noteon 01-12-2024 Wound Care Note [id number]#1.00 [facility] Coding Summaryon 01-07-2024 Coding Summary [facility] Coding Summary [facility] Coding Summaryon 12-31-2023 Coding Summary [facility] Coding Summaryon 12-30-2023 Coding Summary [facility] Wound Care Noteon 12-26-2023 Wound Care Note [id number]#1.00 [facility] Coding Summaryon 12-24-2023 Coding Summary [facility] Coding Summary [facility] Wound Care Noteon 12-22-2023 Wound Care Note [id number]#1.00 OT[facility] Wound Care Noteon 12-15-2023 Wound Care Note [id number]#1.0 0OT[facility]IFF [facility] Wound Care Noteon 12-08-2023 Wound Care Note [id number]#1.0 0[facility] Coding Summaryon 12-04-2023 Coding Summary [facility] Coding Summary [facility] Wound Care Noteon 12-01-2023 Wound Care Note [id number]#1.0 0OT[facility] Coding Summaryon 11-27-2023 Coding Summary [facility] Coding Summary [facility] Coding Summary [facility] Wound Care Noteon 11-25-2023 Wound Care Note [id number]#1.00O TGTIFF [facility] Coding Summaryon 11-17-2023 Coding Summary [facility] Coding Summary [facility] Wound Care Noteon 11-17-2023 Wound Care Note [id number]#1.00O TGTIFF [facility] Coding Summaryon 11-14-2023 Coding Summary [facility] Coding Summary [facility] Wound Care Noteon 11-10-2023 Wound Care Note [id number]#1.00 OT[facility] Coding Summaryon 11-08-2023 Coding Summary [facility] Coding Summary [facility] Wound Care Noteon 11-03-2023 Wound Care Note [id number]#1.00O TGTIFF [facility] Coding Summaryon 11-01-2023 Coding Summary [facility] Wound Care Noteon 10-27-2023 Wound Care Note [id number]#1.00OT GTIFF [facility] Coding Summaryon 10-25-2023 Coding Summary [facility] Coding Summary [facility] Wound Care Noteon 10-20-2023 Wound Care Note [id number]#1.00OT GTIFF [facility] Coding Summaryon 10-17-2023 Coding Summary [facility] Wound Care Noteon 10-13-2023 Wound Care Note [id number]#1.00 OT[facility] Coding Summaryon 10-10-2023 Coding Summary [facility] Wound Care Noteon 10-06-2023 Wound Care Note [id number]#1.00 OT[facility] A1C with Estimated Average G [facility] 10-01-2023 Glucose [Mass/Vol] 146 mg/dL Normal [facility] Comment on above: Result Comment: PERF ORMED BY: [address] [place] [address] PATHOLOGIST IN [employer]IGHT [employer]FUELING OPERATOR MOOKIE WALLER M.D. Performed By: #### C MP, A1C WTH eA, LIPID, ESR, CBC, CRP #### [facility] [address] HbA1c (Bld) [Mass fraction] 6.7 % High 4.3-5.6 [facility] Comment on above: Result Comment: Incr eased risk for diabetes: 5.7 - 6.4 diabetes: >6.4 glycemic control for adults with diabetes: <7.0 Performed By: #### C MP, A1C WTH eA, LIPID, ESR, CBC, CRP #### [facility] [address] Alanine aminotransferase [En zymatic activity/volume] in Serum or PlasmaOrdered By: NON STAFF on 10-01-2023 ALT [Catalytic activity/Vol] 16 U/L 7-52 [facility] Albumin [Mass/volume] in Ser um or Plasma by Bromocresol green (BCG) dye binding methoOrdered By: NON STAFF on 10-01-2023 Albumin BCG dye [Mass/Vol] 4.2 g/dL 3.5-5.7 [facility] Alkaline phosphatase [Enzyma tic activity/volume] in Serum or PlasmaOrdered By: NON STAFF on 10-01-2023 ALP [Catalytic activity/Vol] 54 U/L 34-104 [facility] Aspartate aminotransferase [ Enzymatic activity/volume] in Serum or PlasmaOrdered By: NON STAFF on 10-01-2023 AST [Catalytic activity/Vol] 14 U/L 13-39 [facility] Basophils Auto (Bld) [#/Vol] Ordered By: NON STAFF on 10-01-2023 Basophils (Bld) [#/Vol] 0.1 10*3/uL 0.0-0.2 [facility] Basophils/100 WBC Auto (Bld) Ordered By: NON STAFF on 10-01-2023 Basophils/100 WBC (Bld) 1.2 % . F [facility] Bilirubin.total [Mass/volume ] in Serum or PlasmaOrdered By: NON STAFF on 10-01-2023 Bilirubin [Mass/Vol] 0.8 mg/dL 0.3-1.0 [facility] C reactive protein [Mass/vol ume] in Serum or PlasmaOrdered By: NON STAFF on 10-01-2023 CRP [Mass/Vol] < 0.5 mg/dL 0.0-0.5 [facility] C-Reactive Proteinon 024 CRP [Mass/Vol] mg/L Normal 0.0-0.5 [facility] Comment on above: Performed By: #### C MP, A1C WTH eA, LIPID, ESR, CBC, CRP #### [facility] [address] Calcium [Mass/volume] in Ser um or PlasmaOrdered By: NON STAFF on 10-01-2023 Calcium [Mass/Vol] 10.2 mg/dL 8.6-10.3 [facility] Carbon dioxide, total [Moles /volume] in Serum or PlasmaOrdered By: NON STAFF on 10-01-2023 CO2 [Moles/Vol] 30.9 mmol/L 21.0-31.0 [facility] Chloride [Moles/volume] in S cheryl or PlasmaOrdered By: NON STAFF on 10-01-2023 Chloride [Moles/Vol] 98 mmol/L 98-107 [facility] Cholesterol [Mass/volume] in Serum or PlasmaOrdered By: NON STAFF on 10-01-2023 Cholesterol [Mass/Vol] 213 mg/dL 140-200 [facility] Comment on above: Chol less than 200 m g/dl low riskChol 201-239 mg/dl borderline riskChol 240 mg/dl and greater high risk Cholesterol in LDL Calc [Mas s/Vol]Ordered By: NON STAFF on 10-01-2023 Cholesterol in LDL [Mass/Vol] 134 mg/dL 0-100 [facility] Comment on above: LDL ATP III CLASSIFI CATIONLDL less than 100 mg/dL OptimalLDL 100-129 mg/dL Near or above optimalLDL 130-159 mg/dL Borderline highLDL 160-189 mg/dL HighLDL greater than 189 mg/dL Very high Cholesterol in VLDL Calc [Ma ss/Vol]Ordered By: NON STAFF on 10-01-2023 Cholesterol in VLDL [Mass/Vol] 31 mg/dL [facility] Coding Summaryon 10-01-2023 Coding Summary Normal [facility] Complete Blood Count Auto Di ffon 10-01-2023 Basophils (Bld) [#/Vol] 0.1 10*3/uL Normal 0.0-0.2 [facility] Comment on above: Performed By: #### C MP, A1C WTH eA, LIPID, ESR, CBC, CRP #### [facility] [address] Basophils/100 WBC (Bld) 1.2 % Normal . F [facility] Comment on above: Performed By: #### C MP, A1C WTH eA, LIPID, ESR, CBC, CRP #### [address] Eosinophils (Bld) [#/Vol] 0.5 10*3/uL High 0.0-0.45 [facility] Comment on above: Performed By: #### C MP, A1C WTH eA, LIPID, ESR, CBC, CRP #### [address] Eosinophils/100 WBC (Bld) 6.4 % Normal . [facility] Comment on above: Performed By: #### C MP, A1C WTH eA, LIPID, ESR, CBC, CRP #### [address] Erythrocyte distribution width (RBC) [Ratio] 15.6 % High 11.9-15.3 [facility] Comment on above: Performed By: #### C MP, A1C WTH eA, LIPID, ESR, CBC, CRP #### [address] Hematocrit (Bld) [Volume fraction] 44.0 % Normal 34.0-46.4 [facility] Comment on above: Performed By: #### C MP, A1C WTH eA, LIPID, ESR, CBC, CRP #### [address] Hemoglobin (Bld) [Mass/Vol] 14.9 g/dL Normal 11.8-15.4 [facility] Comment on above: Performed By: #### C MP, A1C WTH eA, LIPID, ESR, CBC, CRP #### [facility] [address] Lymphocytes (Bld) [#/Vol] 1.4 10*3/uL Normal 1.00-4.8 [facility] Comment on above: Performed By: #### C MP, A1C WTH eA, LIPID, ESR, CBC, CRP #### [address] Lymphocytes/100 WBC (Bld) 17.1 % Normal . [facility] Comment on above: Performed By: #### C MP, A1C WTH eA, LIPID, ESR, CBC, CRP #### [address] MCH (RBC) [Entitic mass] 32.3 pg Normal 24.7-34.3 [facility] Comment on above: Performed By: #### C MP, A1C WTH eA, LIPID, ESR, CBC, CRP #### [address] MCV (RBC) [Entitic vol] 95.4 fL Normal 80-100 [facility] Comment on above: Performed By: #### C MP, A1C WTH eA, LIPID, ESR, CBC, CRP #### [address] Mean Corpuscular HGB Conc 33.9 g/dL Normal 32.0-35.0 [facility] Comment on above: Performed By: #### C MP, A1C WTH eA, LIPID, ESR, CBC, CRP #### [address] Monocytes (Bld) [#/Vol] 0.8 10*3/uL Normal 0.0-0.8 [facility] Comment on above: Performed By: #### C MP, A1C WTH eA, LIPID, ESR, CBC, CRP #### [address] Monocytes/100 WBC (Bld) 9.1 % Normal . [facility] Comment on above: Performed By: #### C MP, A1C WTH eA, LIPID, ESR, CBC, CRP #### [facility] [address] [place] [address] [place] Neutrophils (Bld) [#/Vol] 5.6 10*3/uL Normal 1.8-7.7 [facility] Comment on above: Performed By: #### C MP, A1C WTH eA, LIPID, ESR, CBC, CRP #### [facility] [address] [place] [address] [place] Neutrophils/100 WBC (Bld) 66.2 % Normal . [facility] Comment on above: Performed By: #### C MP, A1C WTH eA, LIPID, ESR, CBC, CRP #### [facility] [address] NRBC% 0.1 /100{WBC} Normal 0-0.5 [facility] Comment on above: Performed By: #### C MP, A1C WTH eA, LIPID, ESR, CBC, CRP #### [address] Platelet mean volume (Bld) [Entitic vol] 9.3 fL Normal 6.3-10.7 [facility] Comment on above: Performed By: #### C MP, A1C WTH eA, LIPID, ESR, CBC, CRP #### [place] [address] [place] Platelets (Bld) [#/Vol] 280 10*3/uL Normal 150-450 [facility] Comment on above: Performed By: #### C MP, A1C WTH eA, LIPID, ESR, CBC, CRP #### [facility] [address] [place] [address] [place] RBC (Bld) [#/Vol] 4.61 10*6/uL Normal 3.60-5.00 [facility] Comment on above: Performed By: #### C MP, A1C WTH eA, LIPID, ESR, CBC, CRP #### [address] WBC (Bld) [#/Vol] 8.5 10*3/uL Normal 3.8-11.6 [facility] Comment on above: Performed By: #### C MP, A1C WTH eA, LIPID, ESR, CBC, CRP #### [facility] [address] Comprehensive Metabolic Pane james 10-01-2023 Albumin [Mass/Vol] 4.2 g/dL Normal 3.5-5.7 [facility] Comment on above: Performed By: #### C MP, A1C WTH eA, LIPID, ESR, CBC, CRP #### [facility] [address] Albumin/Globulin [Mass ratio] 1.7 {ratio} Normal [facility] Comment on above: Performed By: #### C MP, A1C WTH eA, LIPID, ESR, CBC, CRP #### [facility] [address] ALP [Catalytic activity/Vol] 54 U/L Normal 34-104 [facility] Comment on above: Performed By: #### C MP, A1C WTH eA, LIPID, ESR, CBC, CRP #### [facility] [address] ALT [Catalytic activity/Vol] 16 U/L Normal 7-52 [facility] Comment on above: Performed By: #### C MP, A1C WTH eA, LIPID, ESR, CBC, CRP #### [facility] [address] Anion gap [Moles/Vol] 15.4 mmol/L High 6.0-15.0 [facility] Comment on above: Performed By: #### C MP, A1C WTH eA, LIPID, ESR, CBC, CRP #### [facility] [address] AST [Catalytic activity/Vol] 14 U/L Normal 13-39 [facility] Comment on above: Performed By: #### C MP, A1C WTH eA, LIPID, ESR, CBC, CRP #### [facility] [address] Bilirubin [Mass/Vol] 0.8 mg/dL Normal 0.3-1.0 [facility] Comment on above: Performed By: #### C MP, A1C WTH eA, LIPID, ESR, CBC, CRP #### [facility] [address] Calcium [Mass/Vol] 10.2 mg/dL Normal 8.6-10.3 [facility] Comment on above: Performed By: #### C MP, A1C WTH eA, LIPID, ESR, CBC, CRP #### [facility] [address] Chloride [Moles/Vol] 98 mmol/L Normal 98-107 [facility] Comment on above: Performed By: #### C MP, A1C WTH eA, LIPID, ESR, CBC, CRP #### [facility] [address] CO2 [Moles/Vol] 30.9 mmol/L Normal 21.0-31.0 [facility] Comment on above: Performed By: #### C MP, A1C WTH eA, LIPID, ESR, CBC, CRP #### [facility] [address] Creatinine [Mass/Vol] 1.07 mg/dL Normal 0.60-1.[address] [facility] Comment on above: Performed By: #### C MP, A1C WTH eA, LIPID, ESR, CBC, CRP #### [facility] [address] GFR/1.73 sq M.predicted MDRD (S/P/Bld) [Vol rate/Area] 54.507 mL/min/{1.73_m2} Normal [facility] Comment on above: Performed By: #### C MP, A1C WTH eA, LIPID, ESR, CBC, CRP #### [facility] [address] Globulin (S) [Mass/Vol] 2.5 g/dL Normal [facility] Comment on above: Performed By: #### C MP, A1C WTH eA, LIPID, ESR, CBC, CRP #### [facility] [address] Glucose [Mass/Vol] 141 mg/dL High 70-100 [facility] Comment on above: Result Comment: [facility] Glucose Reference Range is dependent on time and content of last meal. Glucose of more than 200 mg/dL in a nonstressed, ambulatory subject supports the diagnosis of Diabetes Mellitus. ADA recommended reference range Performed By: #### C MP, A1C WTH eA, LIPID, ESR, CBC, CRP #### [facility] [address] Potassium [Moles/Vol] 4.3 mmol/L Normal 3.5-5.[address] [facility] Comment on above: Performed By: #### C MP, A1C WTH eA, LIPID, ESR, CBC, CRP #### [facility] [address] Protein [Mass/Vol] 6.7 g/dL Normal 6.4-8.9 [facility] Comment on above: Performed By: #### C MP, A1C WTH eA, LIPID, ESR, CBC, CRP #### [facility] [address] [place] [address] [place] Sodium [Moles/Vol] 140 mmol/L Normal 136-145 [facility] Comment on above: Performed By: #### C MP, A1C WTH eA, LIPID, ESR, CBC, CRP #### [facility] [address] [place] [address] [place] Urea nitrogen [Mass/Vol] 22 mg/dL Normal 7-25 [facility] Comment on above: Performed By: #### C MP, A1C WTH eA, LIPID, ESR, CBC, CRP #### [facility] [address] Creatinine [Mass/volume] in Serum or PlasmaOrdered By: NON STAFF on 10-01-2023 Creatinine [Mass/Vol] 1.07 mg/dL 0.60-1.[address] [facility] Eosinophils Auto (Bld) [#/Vo l]Ordered By: NON STAFF on 10-01-2023 Eosinophils (Bld) [#/Vol] 0.5 10*3/uL 0.0-0.45 [facility] Eosinophils/100 WBC Auto (Bl d)Ordered By: NON STAFF on 10-01-2023 Eosinophils/100 WBC (Bld) 6.4 % . [facility] Erythrocyte Sedimentation Ra florencio 10-01-2023 ESR (Bld) [Velocity] 20 mm/h Normal 0-29 [facility] Comment on above: Result Comment: PERF ORMED BY: [facility] [address] [place] [address] PATHOLOGIST IN [employer]FU[employer] OPERATOR MOOKIE WALLER M.D. Performed By: #### C MP, A1C WTH eA, LIPID, ESR, CBC, CRP #### [facility] [address] Erythrocyte distribution wid th Auto (RBC) [Ratio]Ordered By: NON STAFF on 10-01-2023 Erythrocyte distribution width (RBC) [Ratio] 15.6 % 11.9-15.3 [facility] Erythrocyte sedimentation ra te by Photometric methodOrdered By: NON STAFF on 10-01-2023 ESR Photometric method (Bld) [Velocity] 20 mm/hr 0-29 [facility] Globulin Calc (S) [Mass/Vol] Ordered By: NON STAFF on 10-01-2023 Globulin (S) [Mass/Vol] 2.5 g/dL [facility] Glucose [Mass/volume] in Ser um or PlasmaOrdered By: NON STAFF on 10-01-2023 Glucose [Mass/Vol] 141 mg/dL 70-100 [facility] Comment on above: ADA recommended refe rence rangeRandom Glucose Reference Range is dependent on time and content of last meal. Glucose of more than 200 mg/dL in a nonstressed, ambulatory subject supports the diagnosis of Diabetes Mellitus. Hematocrit Auto (Bld) [Volum e fraction]Ordered By: NON STAFF on 10-01-2023 Hematocrit (Bld) [Volume fraction] 44.0 % 34.0-46.4 [facility] Hemoglobin [Mass/volume] in BloodOrdered By: NON STAFF on 10-01-2023 Hemoglobin (Bld) [Mass/Vol] 14.9 g/dL 11.8-15.4 [facility] Leukocytes [#/volume] correc brittny for nucleated erythrocytes in Blood by Automated counOrdered By: NON STAFF on 10-01-2023 WBC corrected for nucl RBC Auto (Bld) [#/Vol] 8.5 10*3/uL 3.8-11.6 [facility] Lipid Panelon 10-01-2023 Cholesterol [Mass/Vol] 213 mg/dL High 140-200 [facility] Comment on above: Result Comment: Chol less than 200 mg/dl low risk Chol 201-239 mg/dl borderline risk Chol 240 mg/dl and greater high risk Performed By: #### C MP, A1C WTH eA, LIPID, ESR, CBC, CRP #### [facility] [address] Cholesterol in HDL [Mass/Vol] 47 mg/dL Normal 23-92 [facility] Comment on above: Result Comment: HDL CHOL ATP-III CLASSIFICATION Cardiovascular Risk HDL > or equal to 60 mg/dL LOW HDL < 40 mg/dL HIGH Performed By: #### C MP, A1C WTH eA, LIPID, ESR, CBC, CRP #### [facility] [address] [place] [address] [place] Cholesterol.total/Choles terol in HDL [Mass ratio] 4.5 {ratio} Normal <5.0 [facility] Comment on above: Result Comment: PERF ORMED BY: [place] [address] PATHOLOGIST IN FLIGHT REFU[employer]ING OPERATOR MOOKIE WALLER M.D. Performed By: #### C MP, A1C WTH eA, LIPID, ESR, CBC, CRP #### [facility] [address] [place] [id number] [facility] LDL Cholesterol,Calculated 134 mg/dL High 0-100 [facility] Comment on above: Result Comment: LDL ATP III CLASSIFICATION LDL less than 100 mg/dL Optimal LDL 100-129 mg/dL Near or above optimal LDL 130-159 mg/dL Borderline high LDL 160-189 mg/dL High LDL greater than 189 mg/dL Very high Performed By: #### C MP, A1C WTH eA, LIPID, ESR, CBC, CRP #### [facility] [address] [place] [id number] [place] Triglyceride w/Reflex 158 mg/dL High 0-[address] [facility] Comment on above: Result Comment: TRIG ATP III CLASSIFICATION TRIG less than 150 mg/dL Normal TRIG 150-199 mg/dL Borderline high TRIG 200-500 mg/dL High TRIG greater than 500 mg/dL Very high Standard traceable to the Center for Disease Conrtrol and Prevention (CDC) test method. Performed By: #### C MP, A1C WTH eA, LIPID, ESR, CBC, CRP #### [facility] [address] VLDL CHOLESTEROL 31 mg/dL Normal [facility] Comment on above: Performed By: #### C MP, A1C WTH eA, LIPID, ESR, CBC, CRP #### [facility] [address] Lymphocytes Auto (Bld) [#/Vo l]Ordered By: NON STAFF on 10-01-2023 Lymphocytes (Bld) [#/Vol] 1.4 10*3/uL 1.00-4.8 [facility] Lymphocytes/100 WBC Auto (Bl d)Ordered By: NON STAFF on 10-01-2023 Lymphocytes/100 WBC (Bld) 17.1 % . [facility] MCH Auto (RBC) [Entitic mass ]Ordered By: NON STAFF on 10-01-2023 MCH (RBC) [Entitic mass] 32.3 pg 24.7-34.3 [facility] MCHC Auto (RBC) [Mass/Vol]Or dered By: NON STAFF on 10-01-2023 MCHC (RBC) [Mass/Vol] 33.9 g/dL 32.0-35.[address] [facility] MCV Auto (RBC) [Entitic vol] Ordered By: NON STAFF on 10-01-2023 MCV (RBC) [Entitic vol] 95.4 fL 80-100 [facility] Monocytes Auto (Bld) [#/Vol] Ordered By: NON STAFF on 10-01-2023 Monocytes (Bld) [#/Vol] 0.8 10*3/uL 0.0-0.8 [facility] Monocytes/100 WBC Auto (Bld) Ordered By: NON STAFF on 10-01-2023 Monocytes/100 WBC (Bld) 9.1 % . [facility] Neutrophils Auto (Bld) [#/Vo l]Ordered By: NON STAFF on 10-01-2023 Neutrophils (Bld) [#/Vol] 5.6 10*3/uL 1.8-7.7 [facility] Neutrophils/100 WBC Auto (Bl d)Ordered By: NON STAFF on 10-01-2023 Neutrophils/100 WBC (Bld) 66.2 % . [facility] No Panel InformationOrdered By: NON STAFF on 10-01-2023 Estimated GFR (CKD-EPI) 54.507 mL/Min [facility] Creatinine Clearance (Chem N/A [facility] Nucleated erythrocytes [Pres ence] in Blood by Automated countOrdered By: NON STAFF on 10-01-2023 Nucleated RBC Auto Ql (Bld) 0.1 /100{WBC} 0-0.5 [facility] Platelet mean volume Auto (B ld) [Entitic vol]Ordered By: NON STAFF on 10-01-2023 Platelet mean volume (Bld) [Entitic vol] 9.3 fL 6.3-10.7 [facility] Platelets Auto (Bld) [#/Vol] Ordered By: NON STAFF on 10-01-2023 Platelets (Bld) [#/Vol] 280 10*3/uL 150-450 [facility] Potassium [Moles/volume] in Serum or PlasmaOrdered By: NON STAFF on 10-01-2023 Potassium [Moles/Vol] 4.3 mmol/L 3.5-5.[address] [facility] Protein [Mass/volume] in Ser um or PlasmaOrdered By: NON STAFF on 10-01-2023 Protein [Mass/Vol] 6.7 g/dL 6.4-8.9 [facility] RBC Auto (Bld) [#/Vol]Ordere d By: NON STAFF on 10-01-2023 RBC (Bld) [#/Vol] 4.61 10*6/uL 3.60-5.00 [facility] Serum or plasma albumin/glob ulin mass ratioOrdered By: NON STAFF on 10-01-2023 Albumin/Globulin [Mass ratio] 1.7 {ratio} [facility] Serum or plasma anion gap de terminationOrdered By: NON STAFF on 10-01-2023 Anion gap [Moles/Vol] 15.4 mmol/L 6.0-15.[address] [facility] Serum or plasma high density lipoprotein (HDL) cholesterol measurementOrdered By: NON STAFF on 10-01-2023 Cholesterol in HDL [Mass/Vol] 47 mg/dL 23-92 [facility] Comment on above: HDL CHOL ATP-III CLA SSIFICATION Cardiovascular RiskHDL > or equal to 60 mg/dL LOWHDL < 40 mg/dL HIGH Serum or plasma total choles terol/high density lipoprotein (HDL) cholesterol mass ratOrdered By: NON STAFF on 10-01-2023 Cholesterol.total/Choles terol in HDL [Mass ratio] 4.5 {ratio} <5.0 [facility] Sodium [Moles/volume] in Ser um or PlasmaOrdered By: NON STAFF on 10-01-2023 Sodium [Moles/Vol] 140 mmol/L 136-145 [facility] Triglyceride [Mass/volume] i n Serum or PlasmaOrdered By: NON STAFF on 10-01-2023 Triglyceride [Mass/Vol] 158 mg/dL 0-149 [facility] Comment on above: TRIG ATP III CLASSIF ICATIONTRIG less than 150 mg/dL NormalTRIG 150-199 mg/dL Borderline highTRIG 200-500 mg/dL High TRIG greater than 500 mg/dL Very highStandard traceable to the Center for Disease Conrtrol and Prevention (CDC) test method. Urea nitrogen [Mass/volume] in Serum or PlasmaOrdered By: NON STAFF on 10-01-2023 Urea nitrogen [Mass/Vol] 22 mg/dL 7-25 [facility] WBC Auto (Bld) [#/Vol]Ordere d By: NON STAFF on 10-01-2023 WBC (Bld) [#/Vol] 8.5 10*3/uL 3.8-11.6 [facility] Coding Summaryon 09-30-2023 Coding Summary [facility] Consent Formson 09-30-2023 Consent Forms [id number]#1.00 [facility] Wound Care Noteon 09-29-2023 Wound Care Note [id number]#1.00 [facility] US LE Arterial Duplex Bilate ralon 09-26-2023 US LE Arterial Duplex Bilateral Normal [facility] US LE Venous Duplex Bilatera james 09-26-2023 US LE Venous Duplex Bilateral Normal [facility] Coding Summaryon 09-23-2023 Coding Summary Normal [facility] Wound Care Noteon 09-22-2023 Wound Care Note [id number]#1.00 [facility] C Tissueon 09-20-2023 C Tissue Normal [facility] Comment on above: Performed By: #### [id number] ####[facility] (DEFAULT)[address] [place] [address] Coding Summaryon 09-16-2023 Coding Summary Normal [facility] Office/Clinic Noteon 024 Office/Clinic Note Normal [facility] Coding Summaryon 09-08-2023 Coding Summary Normal [facility] Office/Clinic Noteon 024 Office/Clinic Note Normal [facility] Coding Summaryon 08-25-2023 Coding Summary Normal [facility] Office/Clinic Noteon 024 Office/Clinic Note Normal [facility] Coding Summaryon 08-13-2023 Coding Summary Normal [facility] Coding Summaryon 08-04-2023 Coding Summary Normal [facility] Office/Clinic Noteon 024 Office/Clinic Note Normal [facility] ED Clinical Summaryon 2023 ED Clinical Summary Normal [facility] ED Note - Physicianon 2023 ED Note - Physician Normal [facility] ED Patient Education Noteon 07-28-2023 ED Patient Education Note Normal [facility] ED Patient Summaryon 024 ED Patient Summary Normal [facility] XR Femur Righton 07-28-2023 XR Femur Right Normal [facility] Coding Summaryon 07-25-2023 Coding Summary Normal [facility] Office/Clinic Noteon 024 Office/Clinic Note Normal [facility] Coding Summaryon 07-14-2023 Coding Summary Normal [facility] Office/Clinic Noteon 024 Office/Clinic Note Normal [facility] A1C with Estimated Average G enedina 01-01-2023 Glucose [Mass/Vol] 154 mg/dL Normal [facility] Comment on above: Result Comment: PERF ORMED BY: [place] [address] PATHOLOGIST IN FLIGHT REFUELING OPERATOR MOOKIE WALLER M.D. Performed By: #### C MP, ESR, CBC #### [facility] [address] HbA1c (Bld) [Mass fraction] 7.0 % High 4.3-5.6 [facility] Comment on above: Result Comment: Incr eased risk for diabetes: 5.7 - 6.4 diabetes: >6.4 glycemic control for adults with diabetes: <7.0 Performed By: #### C MP, ESR, CBC #### [facility] [address] Alanine aminotransferase [En zymatic activity/volume] in Serum or PlasmaOrdered By: Verna Forman on 01-01-2023 ALT [Catalytic activity/Vol] 21 U/L 7-52 [facility] Albumin [Mass/volume] in Ser um or Plasma by Bromocresol green (BCG) dye binding methoOrdered By: Verna Forman on 01-01-2023 Albumin BCG dye [Mass/Vol] 4.2 g/dL 3.5-5.7 [facility] Alkaline phosphatase [Enzyma tic activity/volume] in Serum or PlasmaOrdered By: Verna Forman on 01-01-2023 ALP [Catalytic activity/Vol] 66 U/L 34-104 [facility] Aspartate aminotransferase [ Enzymatic activity/volume] in Serum or PlasmaOrdered By: Verna Forman on 01-01-2023 AST [Catalytic activity/Vol] 15 U/L 13-39 [facility] Basophils Auto (Bld) [#/Vol] Ordered By: Verna Forman on 01-01-2023 Basophils (Bld) [#/Vol] 0.1 10*3/uL 0.0-0.2 [facility] Basophils/100 WBC Auto (Bld) Ordered By: Verna Forman on 01-01-2023 Basophils/100 WBC (Bld) 1.0 % . [facility] Bilirubin.total [Mass/volume ] in Serum or PlasmaOrdered By: Verna Forman on 01-01-2023 Bilirubin [Mass/Vol] 1.0 mg/dL 0.3-1.0 [facility] Calcium [Mass/volume] in Ser um or PlasmaOrdered By: Verna Forman on 01-01-2023 Calcium [Mass/Vol] 9.5 mg/dL 8.6-10.3 [facility] Carbon dioxide, total [Moles /volume] in Serum or PlasmaOrdered By: Verna Forman on 01-01-2023 CO2 [Moles/Vol] 32.4 mmol/L 21.0-31.0 [facility] Chloride [Moles/volume] in S cheryl or PlasmaOrdered By: Verna Forman on 01-01-2023 Chloride [Moles/Vol] 100 mmol/L 98-107 [facility] Cholesterol [Mass/volume] in Serum or PlasmaOrdered By: Ryan Fuentes on 01-01-2023 Cholesterol [Mass/Vol] 219 mg/dL 140-200 [facility] Comment on above: Chol less than 200 m g/dl low riskChol 201-239 mg/dl borderline riskChol 240 mg/dl and greater high risk Cholesterol in LDL Calc [Mas s/Vol]Ordered By: Ryan Fuentes on 01-01-2023 Cholesterol in LDL [Mass/Vol] 131 mg/dL 0-100 [facility] Comment on above: LDL ATP III CLASSIFI CATIONLDL less than 100 mg/dL OptimalLDL 100-129 mg/dL Near or above optimalLDL 130-159 mg/dL Borderline highLDL 160-189 mg/dL HighLDL greater than 189 mg/dL Very high Cholesterol in VLDL Calc [Ma ss/Vol]Ordered By: Ryan Fuentes on 01-01-2023 Cholesterol in VLDL [Mass/Vol] 45 mg/dL [facility] Complete Blood Count Auto Di ffon 01-01-2023 Basophils (Bld) [#/Vol] 0.1 10*3/uL Normal 0.0-0.2 [facility] Comment on above: Performed By: #### C MP, ESR, CBC #### [facility] [address] Basophils/100 WBC (Bld) 1.0 % Normal . [facility] Comment on above: Performed By: #### C MP, ESR, CBC #### [facility] [address] [place] [address] [place] Eosinophils (Bld) [#/Vol] 0.3 10*3/uL Normal 0.0-0.45 [facility] Comment on above: Performed By: #### C MP, ESR, CBC #### [facility] [address] [place] [address] [place] Eosinophils/100 WBC (Bld) 3.2 % Normal . [facility] Comment on above: Performed By: #### C MP, ESR, CBC #### [address] Erythrocyte distribution width (RBC) [Ratio] 14.6 % Normal 11.9-15.3 [facility] Comment on above: Performed By: #### C MP, ESR, CBC #### [address] Hematocrit (Bld) [Volume fraction] 46.4 % Normal 34.0-46.4 [facility] Comment on above: Performed By: #### C MP, ESR, CBC #### [place] [address] [place] Hemoglobin (Bld) [Mass/Vol] 15.8 g/dL High 11.8-15.4 [facility] Comment on above: Performed By: #### C MP, ESR, CBC #### [place] [address] [place] Lymphocytes (Bld) [#/Vol] 1.2 10*3/uL Normal 1.00-4.8 [facility] Comment on above: Performed By: #### C MP, ESR, CBC #### [facility] [address] [place] [address] [place] Lymphocytes/100 WBC (Bld) 11.5 % Normal . [facility] Comment on above: Performed By: #### C MP, ESR, CBC #### [facility] [address] [place] [address] [place] MCH (RBC) [Entitic mass] 31.8 pg Normal 24.7-34.3 [facility] Comment on above: Performed By: #### C MP, ESR, CBC #### [facility] [address] MCV (RBC) [Entitic vol] 93.2 fL Normal 80-100 [facility] Comment on above: Performed By: #### C MP, ESR, CBC #### [facility] [address] Mean Corpuscular HGB Conc 34.1 g/dL Normal 32.0-35.0 [facility] Comment on above: Performed By: #### C MP, ESR, CBC #### [facility] [address] [place] [address] [place] Monocytes (Bld) [#/Vol] 0.8 10*3/uL Normal 0.0-0.8 [facility] Comment on above: Performed By: #### C MP, ESR, CBC #### [facility] [address] [place] [address] [place] Monocytes/100 WBC (Bld) 7.7 % Normal . [facility] Comment on above: Performed By: #### C MP, ESR, CBC #### [facility] [address] [place] [address] [place] Neutrophils (Bld) [#/Vol] 7.9 10*3/uL High 1.8-7.7 [facility] Comment on above: Performed By: #### C MP, ESR, CBC #### [facility] [address] [place] [address] [place] Neutrophils/100 WBC (Bld) 76.6 % Normal . [facility] Comment on above: Performed By: #### C MP, ESR, CBC #### [facility] [address] NRBC% 0.1 /100{WBC} Normal 0-0.5 [facility] Comment on above: Performed By: #### C MP, ESR, CBC #### [facility] [address] Platelet mean volume (Bld) [Entitic vol] 9.5 fL Normal 6.3-10.7 [facility] Comment on above: Performed By: #### C MP, ESR, CBC #### [address] Platelets (Bld) [#/Vol] 218 10*3/uL Normal 150-450 [facility] Comment on above: Performed By: #### C MP, ESR, CBC #### [address] RBC (Bld) [#/Vol] 4.98 10*6/uL Normal 3.60-5.00 [facility] Comment on above: Performed By: #### C MP, ESR, CBC #### [address] WBC (Bld) [#/Vol] 10.3 10*3/uL Normal 3.8-11.6 [facility] Comment on above: Performed By: #### C MP, ESR, CBC #### [address] Comprehensive Metabolic Pane james 01-01-2023 Albumin [Mass/Vol] 4.2 g/dL Normal 3.5-5.7 [facility] Comment on above: Performed By: #### C MP, ESR, CBC #### [address] Albumin/Globulin [Mass ratio] 1.7 {ratio} Normal [facility] Comment on above: Performed By: #### C MP, ESR, CBC #### [address] ALP [Catalytic activity/Vol] 66 U/L Normal 34-104 [facility] Comment on above: Result Comment: PERF ORMED BY: [place] [address] PATHOLOGIST IN [employer]IGHT REFU[employer] OPERATOR MOOKIE WALLER M.D. Performed By: #### C MP, ESR, CBC #### [facility] [address] ALT [Catalytic activity/Vol] 21 U/L Normal 7-52 [facility] Comment on above: Performed By: #### C MP, ESR, CBC #### [facility] [address] Anion gap [Moles/Vol] 11.7 mmol/L Normal 6.0-15.0 [facility] Comment on above: Performed By: #### C MP, ESR, CBC #### [address] AST [Catalytic activity/Vol] 15 U/L Normal 13-39 [facility] Comment on above: Performed By: #### C MP, ESR, CBC #### [place] [address] [place] Bilirubin [Mass/Vol] 1.0 mg/dL Normal 0.3-1.0 [facility] Comment on above: Performed By: #### C MP, ESR, CBC #### [address] Calcium [Mass/Vol] 9.5 mg/dL Normal 8.6-10.3 [facility] Comment on above: Performed By: #### C MP, ESR, CBC #### [facility] [address] [place] [address] [place] Chloride [Moles/Vol] 100 mmol/L Normal 98-107 [facility] Comment on above: Performed By: #### C MP, ESR, CBC #### [facility] [address] [place] [address] [place] CO2 [Moles/Vol] 32.4 mmol/L High 21.0-31.0 [facility] Comment on above: Performed By: #### C MP, ESR, CBC #### [facility] [address] Creatinine [Mass/Vol] 0.86 mg/dL Normal 0.60-1.[address] [facility] Comment on above: Performed By: #### C MP, ESR, CBC #### [facility] [address] [place] [address] [place] GFR/1.73 sq M.predicted MDRD (S/P/Bld) [Vol rate/Area] mL/min/{1.73_m2} Normal [facility] Comment on above: Performed By: #### C MP, ESR, CBC #### [facility] [address] Globulin (S) [Mass/Vol] 2.5 g/dL Normal [facility] Comment on above: Performed By: #### C MP, ESR, CBC #### [address] Glucose [Mass/Vol] 150 mg/dL High 70-100 [facility] Comment on above: Result Comment: [facility] Glucose Reference Range is dependent on time and content of last meal. Glucose of more than 200 mg/dL in a nonstressed, ambulatory subject supports the diagnosis of Diabetes Mellitus. ADA recommended reference range Performed By: #### C MP, ESR, CBC #### [facility] [address] Potassium [Moles/Vol] 4.1 mmol/L Normal 3.5-5.[address] [facility] Comment on above: Performed By: #### C MP, ESR, CBC #### [facility] [address] [place] [address] [place] Protein [Mass/Vol] 6.7 g/dL Normal 6.4-8.9 [facility] Comment on above: Performed By: #### C MP, ESR, CBC #### [facility] [address] Sodium [Moles/Vol] 140 mmol/L Normal 136-145 [facility] Comment on above: Performed By: #### C MP, ESR, CBC #### [facility] [address] Urea nitrogen [Mass/Vol] 20 mg/dL Normal 7-25 [facility] Comment on above: Performed By: #### C MP, ESR, CBC #### [facility] [address] [place] [address] Creatinine [Mass/volume] in Serum or PlasmaOrdered By: Verna Forman on 01-01-2023 Creatinine [Mass/Vol] 0.86 mg/dL 0.60-1.[address] [facility] Eosinophils Auto (Bld) [#/Vo l]Ordered By: Verna Forman on 01-01-2023 Eosinophils (Bld) [#/Vol] 0.3 10*3/uL 0.0-0.45 [facility] Eosinophils/100 WBC Auto (Bl d)Ordered By: Verna Forman on 01-01-2023 Eosinophils/100 WBC (Bld) 3.2 % . [facility] Erythrocyte Sedimentation Ra florencio 01-01-2023 ESR (Bld) [Velocity] 22 mm/h Normal 0-29 [facility] Comment on above: Result Comment: PERF ORMED BY: [place] [address] PATHOLOGIST IN FLIGHT REFUELING OPERATOR MOOKIE WALLER M.D. Performed By: #### C MP, ESR, CBC #### [facility] [address] [place] [address] Erythrocyte distribution wid th Auto (RBC) [Ratio]Ordered By: Verna Forman on 01-01-2023 Erythrocyte distribution width (RBC) [Ratio] 14.6 % 11.9-15.3 [facility] Erythrocyte sedimentation ra te by Photometric methodOrdered By: Verna Forman on 01-01-2023 ESR Photometric method (Bld) [Velocity] 22 mm/hr 0-29 [facility] Globulin Calc (S) [Mass/Vol] Ordered By: Verna Forman on 01-01-2023 Globulin (S) [Mass/Vol] 2.5 g/dL [facility] Glucose [Mass/volume] in Ser um or PlasmaOrdered By: Verna Forman on 01-01-2023 Glucose [Mass/Vol] 150 mg/dL 70-100 [facility] Comment on above: ADA recommended refe rence rangeRandom Glucose Reference Range is dependent on time and content of last meal. Glucose of more than 200 mg/dL in a nonstressed, ambulatory subject supports the diagnosis of Diabetes Mellitus. Glucose mean value [Mass/vol ume] in Blood Estimated from glycated hemoglobinOrdered By: Ryan Fuentes on 01-01-2023 Average glucose Estimated from glycated hemoglobin (Bld) [Mass/Vol] 154 mg/dL [facility] Hematocrit Auto (Bld) [Volum e fraction]Ordered By: Verna Forman on 01-01-2023 Hematocrit (Bld) [Volume fraction] 46.4 % 34.0-46.4 [facility] Hemoglobin A1c percentageOrd ered By: Ryan Fuentes on 01-01-2023 HbA1c (Bld) [Mass fraction] 7.0 % 4.3-5.6 [facility] Comment on above: Increased risk for d iabetes: 5.7 - 6.4diabetes: >6.4glycemic control for adults with diabetes: <7.0 Hemoglobin [Mass/volume] in BloodOrdered By: Verna Forman on 01-01-2023 Hemoglobin (Bld) [Mass/Vol] 15.8 g/dL 11.8-15.4 [facility] Leukocytes [#/volume] correc brittny for nucleated erythrocytes in Blood by Automated counOrdered By: Verna Forman on 01-01-2023 WBC corrected for nucl RBC Auto (Bld) [#/Vol] 10.3 10*3/uL 3.8-11.6 [facility] Lipid Panelon 01-01-2023 Cholesterol [Mass/Vol] 219 mg/dL High 140-200 [facility] Comment on above: Result Comment: Chol less than 200 mg/dl low risk Chol 201-239 mg/dl borderline risk Chol 240 mg/dl and greater high risk Performed By: #### L [facility] #### [address] [address] [place] Cholesterol in HDL [Mass/Vol] 43 mg/dL Normal 23-92 [facility] Comment on above: Result Comment: HDL CHOL ATP-III CLASSIFICATION Cardiovascular Risk HDL > or equal to 60 mg/dL LOW HDL < 40 mg/dL HIGH Performed By: #### L IPID [address] eA #### [facility] [address] Cholesterol.total/Choles terol in HDL [Mass ratio] 5.1 {ratio} Normal <5.0 [facility] Comment on above: Result Comment: PERF ORMED BY: [place] [address] PATHOLOGIST IN FLIGHT REFUELING OPERATOR MOOKIE WALLER M.D. Performed By: #### L IPKAMILAH, [address] eA #### [address] LDL Cholesterol,Calculated 131 mg/dL High 0-100 [facility] Comment on above: Result Comment: LDL ATP III CLASSIFICATION LDL less than 100 mg/dL Optimal LDL 100-129 mg/dL Near or above optimal LDL 130-159 mg/dL Borderline high LDL 160-189 mg/dL High LDL greater than 189 mg/dL Very high Performed By: #### L IPID, [address] eA #### [address] Triglyceride w/Reflex 227 mg/dL High 0-[address] [facility] Comment on above: Result Comment: TRIG ATP III CLASSIFICATION TRIG less than 150 mg/dL Normal TRIG 150-199 mg/dL Borderline high TRIG 200-500 mg/dL High TRIG greater than 500 mg/dL Very high Standard traceable to the Center for Disease Conrtrol and Prevention (CDC) test method. Performed By: #### L IPID, [address] eA #### [facility] [address] VLDL CHOLESTEROL 45 mg/dL Normal [facility] Comment on above: Performed By: #### L IPID, [address] eA #### [facility] [address] Lymphocytes Auto (Bld) [#/Vo l]Ordered By: Verna Forman on 01-01-2023 Lymphocytes (Bld) [#/Vol] 1.2 10*3/uL 1.00-4.8 [facility] Lymphocytes/100 WBC Auto (Bl d)Ordered By: Verna Forman on 01-01-2023 Lymphocytes/100 WBC (Bld) 11.5 % . [facility] MCH Auto (RBC) [Entitic mass ]Ordered By: Verna Forman on 01-01-2023 MCH (RBC) [Entitic mass] 31.8 pg 24.7-34.3 [facility] MCHC Auto (RBC) [Mass/Vol]Or dered By: Verna Forman on 01-01-2023 MCHC (RBC) [Mass/Vol] 34.1 g/dL 32.0-35.0 [facility] MCV Auto (RBC) [Entitic vol] Ordered By: Verna Forman on 01-01-2023 MCV (RBC) [Entitic vol] 93.2 fL 80-100 [facility] Monocytes Auto (Bld) [#/Vol] Ordered By: Verna Forman on 01-01-2023 Monocytes (Bld) [#/Vol] 0.8 10*3/uL 0.0-0.8 [facility] Monocytes/100 WBC Auto (Bld) Ordered By: Verna Forman on 01-01-2023 Monocytes/100 WBC (Bld) 7.7 % . [facility] Neutrophils Auto (Bld) [#/Vo l]Ordered By: Verna Forman on 01-01-2023 Neutrophils (Bld) [#/Vol] 7.9 10*3/uL 1.8-7.7 [facility] Neutrophils/100 WBC Auto (Bl d)Ordered By: Verna Forman on 01-01-2023 Neutrophils/100 WBC (Bld) 76.6 % . [facility] No Panel InformationOrdered By: Verna Forman on 01-01-2023 Estimated GFR (CKD-EPI) > 60.0 mL/Min [facility] Creatinine Clearance (Chem N/A [facility] Nucleated erythrocytes [Pres ence] in Blood by Automated countOrdered By: Verna Forman on 01-01-2023 Nucleated RBC Auto Ql (Bld) 0.1 /100{WBC} 0-0.5 [facility] Platelet mean volume Auto (B ld) [Entitic vol]Ordered By: Verna Forman on 01-01-2023 Platelet mean volume (Bld) [Entitic vol] 9.5 fL 6.3-10.7 [facility] Platelets Auto (Bld) [#/Vol] Ordered By: Verna Forman on 01-01-2023 Platelets (Bld) [#/Vol] 218 10*3/uL 150-450 [facility] Potassium [Moles/volume] in Serum or PlasmaOrdered By: Verna Forman on 01-01-2023 Potassium [Moles/Vol] 4.1 mmol/L 3.5-5.[address] [facility] Protein [Mass/volume] in Ser um or PlasmaOrdered By: Verna Forman on 01-01-2023 Protein [Mass/Vol] 6.7 g/dL 6.4-8.9 [facility] RBC Auto (Bld) [#/Vol]Ordere d By: Verna Forman on 01-01-2023 RBC (Bld) [#/Vol] 4.98 10*6/uL 3.60-5.00 [facility] Serum or plasma albumin/glob ulin mass ratioOrdered By: Verna Forman on 01-01-2023 Albumin/Globulin [Mass ratio] 1.7 {ratio} [facility] Serum or plasma anion gap de terminationOrdered By: Verna Forman on 01-01-2023 Anion gap [Moles/Vol] 11.7 mmol/L 6.0-15.0 [facility] Serum or plasma high density lipoprotein (HDL) cholesterol measurementOrdered By: Ryan Fuentes on 01-01-2023 Cholesterol in HDL [Mass/Vol] 43 mg/dL 23-92 [facility] Comment on above: HDL CHOL ATP-III CLA SSIFICATION Cardiovascular RiskHDL > or equal to 60 mg/dL LOWHDL < 40 mg/dL HIGH Serum or plasma total choles terol/high density lipoprotein (HDL) cholesterol mass ratOrdered By: Ryan Fuentes on 01-01-2023 Cholesterol.total/Choles terol in HDL [Mass ratio] 5.1 {ratio} <5.0 [facility] Sodium [Moles/volume] in Ser um or PlasmaOrdered By: Verna Forman on 01-01-2023 Sodium [Moles/Vol] 140 mmol/L 136-145 [facility] Triglyceride [Mass/volume] i n Serum or PlasmaOrdered By: Ryan Fuentes on 01-01-2023 Triglyceride [Mass/Vol] 227 mg/dL 0-149 [facility] Comment on above: TRIG ATP III CLASSIF ICATIONTRIG less than 150 mg/dL NormalTRIG 150-199 mg/dL Borderline highTRIG 200-500 mg/dL High TRIG greater than 500 mg/dL Very highStandard traceable to the Center for Disease Conrtrol and Prevention (CDC) test method. Urea nitrogen [Mass/volume] in Serum or PlasmaOrdered By: Verna Forman on 01-01-2023 Urea nitrogen [Mass/Vol] 20 mg/dL 7-25 [facility] WBC Auto (Bld) [#/Vol]Ordere d By: Verna Forman on 01-01-2023 WBC (Bld) [#/Vol] 10.3 10*3/uL 3.8-11.6 [facility] Albumin [Mass/volume] in Ser um or PlasmaOrdered By: Verna Forman on 08-12-2022 Albumin [Mass/Vol] 3.8 g/dL 3.2-5.5 [facility] Basophils Auto (Bld) [#/Vol] Ordered By: Verna Forman on 08-12-2022 Basophils (Bld) [#/Vol] 0.1 10*3/uL 0.0-0.2 [facility] Basophils/100 WBC Auto (Bld) Ordered By: Verna Forman on 08-12-2022 Basophils/100 WBC (Bld) 0.6 % . [facility] Creatinine and Glomerular fi ltration rate.predicted panel (S/P/Bld)Ordered By: Verna Forman on 08-12-2022 Creatinine [Mass/Vol] 0.85 mg/dL 0.44-1.[address] [facility] Eosinophils Auto (Bld) [#/Vo l]Ordered By: Verna Forman on 08-12-2022 Eosinophils (Bld) [#/Vol] 0.4 10*3/uL 0.0-0.45 [facility] Eosinophils/100 WBC Auto (Bl d)Ordered By: Verna Forman on 08-12-2022 Eosinophils/100 WBC (Bld) 4.3 % . [facility] Erythrocyte distribution wid th Auto (RBC) [Ratio]Ordered By: Verna Forman on 08-12-2022 Erythrocyte distribution width (RBC) [Ratio] 14.7 % 11.9-15.3 [facility] Erythrocyte sedimentation ra te by Photometric methodOrdered By: Verna Forman on 08-12-2022 ESR Photometric method (Bld) [Velocity] 18 mm/hr 0-29 [facility] Estimated glomerular filtrat ion rate (GFR) non- AmericanOrdered By: Verna Forman on 08-12-2022 GFR/1.73 sq M.predicted among non-blacks MDRD (S/P/Bld) [Vol rate/Area] > 60 mL/Min [facility] Globulin Calc (S) [Mass/Vol] Ordered By: Verna Forman on 08-12-2022 Globulin (S) [Mass/Vol] 2.8 g/dL [facility] Hematocrit Auto (Bld) [Volum e fraction]Ordered By: Verna Forman on 08-12-2022 Hematocrit (Bld) [Volume fraction] 47.3 % 34.0-46.4 [facility] Hemoglobin [Mass/volume] in BloodOrdered By: Verna Forman on 08-12-2022 Hemoglobin (Bld) [Mass/Vol] 15.7 g/dL 11.8-15.4 [facility] Leukocytes [#/volume] correc brittny for nucleated erythrocytes in Blood by Automated counOrdered By: Verna Forman on 08-12-2022 WBC corrected for nucl RBC Auto (Bld) [#/Vol] 8.6 10*3/uL 3.8-11.6 [facility] Lymphocytes Auto (Bld) [#/Vo l]Ordered By: Verna Forman on 08-12-2022 Lymphocytes (Bld) [#/Vol] 1.4 10*3/uL 1.00-4.8 [facility] Lymphocytes/100 WBC Auto (Bl d)Ordered By: Verna Forman on 08-12-2022 Lymphocytes/100 WBC (Bld) 16.0 % . [facility] MCH Auto (RBC) [Entitic mass ]Ordered By: Verna Forman on 08-12-2022 MCH (RBC) [Entitic mass] 31.2 pg 24.7-34.3 [facility] MCHC Auto (RBC) [Mass/Vol]Or dered By: Verna Forman on 08-12-2022 MCHC (RBC) [Mass/Vol] 33.1 g/dL 32.0-35.[address] [facility] MCV Auto (RBC) [Entitic vol] Ordered By: Verna Forman on 08-12-2022 MCV (RBC) [Entitic vol] 94.2 fL 80-100 [facility] Monocytes Auto (Bld) [#/Vol] Ordered By: Verna Forman on 08-12-2022 Monocytes (Bld) [#/Vol] 0.7 10*3/uL 0.0-0.8 [facility] Monocytes/100 WBC Auto (Bld) Ordered By: Verna Forman on 08-12-2022 Monocytes/100 WBC (Bld) 7.7 % . [facility] Neutrophils Auto (Bld) [#/Vo l]Ordered By: Verna Forman on 08-12-2022 Neutrophils (Bld) [#/Vol] 6.1 10*3/uL 1.8-7.7 [facility] Neutrophils/100 WBC Auto (Bl d)Ordered By: Verna Forman on 08-12-2022 Neutrophils/100 WBC (Bld) 71.4 % . [facility] No Panel InformationOrdered By: Verna Forman on 08-12-2022 Estimated GFR () > 60 mL/Min [facility] Comment on above: GFR estimated refere nce range: According to KDOQI guidelines, <60 ml/min/1.73m2 is sufficient to diagnose a patient with chronic kidney disease. Pharmacy Creatinine Clearance (Chem N/A [facility] Nucleated erythrocytes [Pres ence] in Blood by Automated countOrdered By: Verna Forman on 08-12-2022 Nucleated RBC Auto Ql (Bld) 0.4 /100{WBC} 0-0.5 [facility] Platelet mean volume Auto (B ld) [Entitic vol]Ordered By: Verna Forman on 08-12-2022 Platelet mean volume (Bld) [Entitic vol] 9.6 fL 6.3-10.7 [facility] Platelets Auto (Bld) [#/Vol] Ordered By: Verna Forman on 08-12-2022 Platelets (Bld) [#/Vol] 221 10*3/uL 150-450 [facility] Protein [Mass/volume] in Ser um or PlasmaOrdered By: Verna Forman on 08-12-2022 Protein [Mass/Vol] 6.6 g/dL 6.1-7.9 [facility] RBC Auto (Bld) [#/Vol]Ordere d By: Verna Forman on 08-12-2022 RBC (Bld) [#/Vol] 5.02 10*6/uL 3.60-5.00 [facility] Serum or plasma alanine almazan otransferase measurement without P-5'-P (enzymatic activiOrdered By: Verna Forman on 08-12-2022 ALT No additional P-5'-P [Catalytic activity/Vol] 24 U/L 10-60 [facility] Serum or plasma albumin/glob ulin mass ratioOrdered By: Verna Forman on 08-12-2022 Albumin/Globulin [Mass ratio] 1.4 {ratio} [facility] Serum or plasma alkaline kayden sphatase measurement (enzymatic activity/volume)Ordered By: Verna Forman on 08-12-2022 ALP [Catalytic activity/Vol] 60 U/L 32-92 [facility] Serum or plasma anion gap de terminationOrdered By: Verna Forman on 08-12-2022 Anion gap [Moles/Vol] 11.9 mmol/L 6.0-15.0 [facility] Serum or plasma aspartate am inotransferase measurement (enzymatic activity/volume)Ordered By: Verna Forman on 08-12-2022 AST [Catalytic activity/Vol] 19 U/L 10-42 [facility] Serum or plasma calcium pia urement (mass/volume)Ordered By: Verna Forman on 08-12-2022 Calcium [Mass/Vol] 9.8 mg/dL 8.2-10.2 [facility] Serum or plasma chloride madison surement (moles/volume)Ordered By: Verna Forman on 08-12-2022 Chloride [Moles/Vol] 100 mmol/L 95-114 [facility] Serum or plasma glucose pia urement (mass/volume)Ordered By: Verna Forman on 08-12-2022 Glucose [Mass/Vol] 138 mg/dL 70-100 [facility] Comment on above: ADA recommended refe rence rangeRandom Glucose Reference Range is dependent on time and content of last meal. Glucose of more than 200 mg/dL in a nonstressed, ambulatory subject supports the diagnosis of Diabetes Mellitus. Serum or plasma potassium me asurement (moles/volume)Ordered By: Verna Forman on 08-12-2022 Potassium [Moles/Vol] 4.0 mmol/L 3.5-5.[address] [facility] Serum or plasma sodium measu rement (moles/volume)Ordered By: Verna Forman on 08-12-2022 Sodium [Moles/Vol] 139 mmol/L 136-146 [facility] Serum or plasma total biliru bin measurement (mass/volume)Ordered By: Verna Forman on 08-12-2022 Bilirubin [Mass/Vol] 1.2 mg/dL 0.3-1.2 [facility] Serum or plasma total carbon dioxide measurement (moles/volume)Ordered By: Verna Forman on 08-12-2022 CO2 [Moles/Vol] 31.1 mmol/L 22.0-30.0 [facility] Serum or plasma urea nitroge n measurement (mass/volume)Ordered By: Verna Forman on 08-12-2022 Urea nitrogen [Mass/Vol] 14 mg/dL 9-23 [facility] WBC Auto (Bld) [#/Vol]Ordere d By: Verna Forman on 08-12-2022 WBC (Bld) [#/Vol] 8.6 10*3/uL 3.8-11.6 [facility] Basophils Auto (Bld) [#/Vol] Ordered By: Verna Forman on 04-17-2022 Basophils (Bld) [#/Vol] 0.1 10*3/uL 0.0-0.2 [facility] Basophils/100 WBC Auto (Bld) Ordered By: Verna Forman on 04-17-2022 Basophils/100 WBC (Bld) 0.7 % . [facility] Body fluid albumin measureme nt (mass/volume)Ordered By: Verna Forman on 04-17-2022 Albumin (Body fld) [Mass/Vol] 3.8 g/dL 3.2-5.5 [facility] Creatinine and Glomerular fi ltration rate.predicted panel (S/P/Bld)Ordered By: Verna Forman on 04-17-2022 Creatinine [Mass/Vol] 0.78 mg/dL 0.44-1.[address] [facility] Eosinophils Auto (Bld) [#/Vo l]Ordered By: Verna Forman on 04-17-2022 Eosinophils (Bld) [#/Vol] 0.4 10*3/uL 0.0-0.45 [facility] Eosinophils/100 WBC Auto (Bl d)Ordered By: Verna Forman on 04-17-2022 Eosinophils/100 WBC (Bld) 5.2 % . [facility] Erythrocyte distribution wid th Auto (RBC) [Ratio]Ordered By: Verna Forman on 04-17-2022 Erythrocyte distribution width (RBC) [Ratio] 14.4 % 11.9-15.3 [facility] Erythrocyte sedimentation ra te by Photometric methodOrdered By: Verna Forman on 04-17-2022 ESR Photometric method (Bld) [Velocity] 24 mm/hr 0-29 [facility] Estimated glomerular filtrat ion rate (GFR) non- AmericanOrdered By: Verna Forman on 04-17-2022 GFR/1.73 sq M.predicted among non-blacks MDRD (S/P/Bld) [Vol rate/Area] > 60 mL/Min [facility] Globulin Calc (S) [Mass/Vol] Ordered By: Verna Forman on 04-17-2022 Globulin (S) [Mass/Vol] 2.6 g/dL [facility] Hematocrit Auto (Bld) [Volum e fraction]Ordered By: Verna Forman on 04-17-2022 Hematocrit (Bld) [Volume fraction] 46.7 % 34.0-46.4 [facility] Hemoglobin [Mass/volume] in BloodOrdered By: Verna Forman on 04-17-2022 Hemoglobin (Bld) [Mass/Vol] 15.8 g/dL 11.8-15.4 [facility] Laboratory - Hematology and Cell countsOrdered By: Verna Forman on 04-17-2022 Nucleated RBC/100 WBC (Bld) [Ratio] 0.1 % 0-0.5 [facility] Leukocytes [#/volume] in Blo od by Automated countOrdered By: Verna Forman on 04-17-2022 WBC (Bld) [#/Vol] 7.9 10*3/uL 4.5-11.0 [facility] Lymphocytes Auto (Bld) [#/Vo l]Ordered By: Verna Forman on 04-17-2022 Lymphocytes (Bld) [#/Vol] 1.4 10*3/uL 1.00-4.8 [facility] Lymphocytes/100 WBC Auto (Bl d)Ordered By: Verna Forman on 04-17-2022 Lymphocytes/100 WBC (Bld) 17.6 % . [facility] MCH Auto (RBC) [Entitic mass ]Ordered By: Verna Forman on 04-17-2022 MCH (RBC) [Entitic mass] 32.2 pg 24.7-34.3 [facility] MCHC Auto (RBC) [Mass/Vol]Or dered By: Verna Forman on 04-17-2022 MCHC (RBC) [Mass/Vol] 33.9 g/dL 32.0-35.[address] [facility] MCV Auto (RBC) [Entitic vol] Ordered By: Verna Forman on 04-17-2022 MCV (RBC) [Entitic vol] 95.0 fL 80-100 [facility] Monocytes Auto (Bld) [#/Vol] Ordered By: Verna Forman on 04-17-2022 Monocytes (Bld) [#/Vol] 0.7 10*3/uL 0.0-0.8 [facility] Monocytes/100 WBC Auto (Bld) Ordered By: Verna Forman on 04-17-2022 Monocytes/100 WBC (Bld) 9.2 % . [facility] Neutrophils Auto (Bld) [#/Vo l]Ordered By: Verna Forman on 04-17-2022 Neutrophils (Bld) [#/Vol] 5.3 10*3/uL 1.8-7.7 [facility] Neutrophils/100 WBC Auto (Bl d)Ordered By: Verna Forman on 04-17-2022 Neutrophils/100 WBC (Bld) 67.3 % . [facility] No Panel InformationOrdered By: Verna Forman on 04-17-2022 Estimated GFR () > 60 mL/Min [facility] Comment on above: GFR estimated refere nce range: According to KDOQI guidelines, <60 ml/min/1.73m2 is sufficient to diagnose a patient with chronic kidney disease. Pharmacy Creatinine Clearance (Chem N/A [facility] Platelet mean volume Auto (B ld) [Entitic vol]Ordered By: Verna Forman on 04-17-2022 Platelet mean volume (Bld) [Entitic vol] 9.3 fL 6.3-10.7 [facility] Platelets Auto (Bld) [#/Vol] Ordered By: Verna Forman on 04-17-2022 Platelets (Bld) [#/Vol] 273 10*3/uL 150-450 [facility] Protein [Mass/volume] in Ser um or PlasmaOrdered By: Verna Forman on 04-17-2022 Protein [Mass/Vol] 6.4 g/dL 6.1-7.9 [facility] RBC Auto (Bld) [#/Vol]Ordere d By: Verna Forman on 04-17-2022 RBC (Bld) [#/Vol] 4.92 10*6/uL 3.60-5.00 [facility] Serum or plasma alanine almazan otransferase measurement without P-5'-P (enzymatic activiOrdered By: Verna Forman on 04-17-2022 ALT No additional P-5'-P [Catalytic activity/Vol] 22 U/L 10 [facility] Serum or plasma albumin/glob ulin mass ratioOrdered By: Verna Forman on 04-17-2022 Albumin/Globulin [Mass ratio] 1.5 {ratio} [facility] Serum or plasma alkaline kayden sphatase measurement (enzymatic activity/volume)Ordered By: Verna Forman on 04-17-2022 ALP [Catalytic activity/Vol] 63 U/L 32-92 [facility] Serum or plasma anion gap de terminationOrdered By: Verna Forman on 04-17-2022 Anion gap [Moles/Vol] 10.6 mmol/L 6.0-15.0 [facility] Serum or plasma aspartate am inotransferase measurement (enzymatic activity/volume)Ordered By: Verna Forman on 04-17-2022 AST [Catalytic activity/Vol] 17 U/L [facility] Serum or plasma calcium pia urement (mass/volume)Ordered By: Verna Forman on 04-17-2022 Calcium [Mass/Vol] 9.7 mg/dL 8.2-10.2 [facility] Serum or plasma chloride madison surement (moles/volume)Ordered By: Verna Forman on 04-17-2022 Chloride [Moles/Vol] 102 mmol/L 95-114 [facility] Serum or plasma glucose pia urement (mass/volume)Ordered By: Verna Forman on 04-17-2022 Glucose [Mass/Vol] 154 mg/dL 70-100 [facility] Comment on above: ADA recommended refe rence rangeRandom Glucose Reference Range is dependent on time and content of last meal. Glucose of more than 200 mg/dL in a nonstressed, ambulatory subject supports the diagnosis of Diabetes Mellitus. Serum or plasma potassium me asurement (moles/volume)Ordered By: Verna Forman on 04-17-2022 Potassium [Moles/Vol] 3.8 mmol/L 3.5-5.[address] [facility] Serum or plasma sodium measu rement (moles/volume)Ordered By: Verna Forman on 04-17-2022 Sodium [Moles/Vol] 136 mmol/L 136-146 [facility] Serum or plasma total biliru bin measurement (mass/volume)Ordered By: Verna Forman on 04-17-2022 Bilirubin [Mass/Vol] 0.9 mg/dL 0.3-1.2 [facility] Serum or plasma total carbon dioxide measurement (moles/volume)Ordered By: Verna Forman on 04-17-2022 CO2 [Moles/Vol] 27.2 mmol/L 22.0-30.0 [facility] Serum or plasma urea nitroge n measurement (mass/volume)Ordered By: Verna Forman on 04-17-2022 Urea nitrogen [Mass/Vol] 20 mg/dL 9-23 [facility] Basophils Auto (Bld) [#/Vol] Ordered By: Tequila Smith on 01-16-2022 Basophils (Bld) [#/Vol] 0.1 10*3/uL 0.0-0.2 [facility] Basophils/100 WBC Auto (Bld) Ordered By: Tequila Smith on 01-16-2022 Basophils/100 WBC (Bld) 1.1 % . [facility] Blood hemoglobin measurement (mass/volume)Ordered By: Tequila Smith on 01-16-2022 Hemoglobin (Bld) [Mass/Vol] 15.3 g/dL 11.8-15.4 [facility] Blood leukocytes automated c ount (number/volume)Ordered By: Tequila Smith on 01-16-2022 WBC (Bld) [#/Vol] 7.9 10*3/uL 4.5-11.0 [facility] Body fluid albumin measureme nt (mass/volume)Ordered By: Tequila Smith on 01-16-2022 Albumin (Body fld) [Mass/Vol] 4.0 g/dL 3.2-5.5 [facility] Creatinine and Glomerular fi ltration rate.predicted panel (S/P/Bld)Ordered By: Tequila Smith on 01-16-2022 Creatinine [Mass/Vol] 0.81 mg/dL 0.44-1.[address] [facility] Eosinophils Auto (Bld) [#/Vo l]Ordered By: Tequila Smith on 01-16-2022 Eosinophils (Bld) [#/Vol] 0.5 10*3/uL 0.0-0.45 [facility] Eosinophils/100 WBC Auto (Bl d)Ordered By: Tequila Smith on 01-16-2022 Eosinophils/100 WBC (Bld) 6.8 % . [facility] Erythrocyte distribution wid th Auto (RBC) [Ratio]Ordered By: Tequila Smith on 01-16-2022 Erythrocyte distribution width (RBC) [Ratio] 14.7 % 11.9-15.3 [facility] Erythrocyte sedimentation ra te by Photometric methodOrdered By: Tequila Smith on 01-16-2022 ESR Photometric method (Bld) [Velocity] 22 mm/hr 0-29 [facility] Estimated glomerular filtrat ion rate (GFR) non- AmericanOrdered By: Tequila Smith on 01-16-2022 GFR/1.73 sq M.predicted among non-blacks MDRD (S/P/Bld) [Vol rate/Area] > 60 mL/Min [facility] Globulin Calc (S) [Mass/Vol] Ordered By: Tequila Smith on 01-16-2022 Globulin (S) [Mass/Vol] 2.5 g/dL [facility] Hematocrit Auto (Bld) [Volum e fraction]Ordered By: Tequila Smith on 01-16-2022 Hematocrit (Bld) [Volume fraction] 44.8 % 34.0-46.4 [facility] Laboratory - Hematology and Cell countsOrdered By: Tequila Smith on 01-16-2022 Nucleated RBC/100 WBC (Bld) [Ratio] 0.1 % 0-0.5 [facility] Lymphocytes Auto (Bld) [#/Vo l]Ordered By: Tequila Smith on 01-16-2022 Lymphocytes (Bld) [#/Vol] 1.4 10*3/uL 1.00-4.8 [facility] Lymphocytes/100 WBC Auto (Bl d)Ordered By: Tequila Smith on 01-16-2022 Lymphocytes/100 WBC (Bld) 18.0 % . [facility] MCH Auto (RBC) [Entitic mass ]Ordered By: Tequila Smith on 01-16-2022 MCH (RBC) [Entitic mass] 31.9 pg 24.7-34.3 [facility] MCHC Auto (RBC) [Mass/Vol]Or dered By: Tequila Smith on 01-16-2022 MCHC (RBC) [Mass/Vol] 34.1 g/dL 32.0-35.[address] [facility] MCV Auto (RBC) [Entitic vol] Ordered By: Teuqila Smith on 01-16-2022 MCV (RBC) [Entitic vol] 93.5 fL 80-100 [facility] Monocytes Auto (Bld) [#/Vol] Ordered By: Tequila Smith on 01-16-2022 Monocytes (Bld) [#/Vol] 0.6 10*3/uL 0.0-0.8 [facility] Monocytes/100 WBC Auto (Bld) Ordered By: Tequila Smith on 01-16-2022 Monocytes/100 WBC (Bld) 8.1 % . [facility] Neutrophils Auto (Bld) [#/Vo l]Ordered By: Tequila Smith on 01-16-2022 Neutrophils (Bld) [#/Vol] 5.2 10*3/uL 1.8-7.7 [facility] Neutrophils/100 WBC Auto (Bl d)Ordered By: Tequila Smith on 01-16-2022 Neutrophils/100 WBC (Bld) 66.0 % . [facility] No Panel InformationOrdered By: Tequila Smith on 01-16-2022 Estimated GFR () > 60 mL/Min [facility] Comment on above: GFR estimated refere nce range: According to KDOQI guidelines, <60 ml/min/1.73m2 is sufficient to diagnose a patient with chronic kidney disease. Pharmacy Creatinine Clearance (Chem N/A [facility] Platelet mean volume Auto (B ld) [Entitic vol]Ordered By: Tequila Smith on 01-16-2022 Platelet mean volume (Bld) [Entitic vol] 9.7 fL 6.3-10.7 [facility] Platelets Auto (Bld) [#/Vol] Ordered By: Tequila mSith on 01-16-2022 Platelets (Bld) [#/Vol] 243 10*3/uL 150-450 [facility] Protein [Mass/volume] in Ser um or PlasmaOrdered By: Tequila Smith on 01-16-2022 Protein [Mass/Vol] 6.5 g/dL 6.1-7.9 [facility] RBC Auto (Bld) [#/Vol]Ordere d By: Tequila Smith on 01-16-2022 RBC (Bld) [#/Vol] 4.79 10*6/uL 3.60-5.00 [facility] Serum or plasma alanine almazan otransferase measurement without P-5'-P (enzymatic activiOrdered By: Tequila Smith on 01-16-2022 ALT No additional P-5'-P [Catalytic activity/Vol] 23 U/L 10-60 [facility] Serum or plasma albumin/glob ulin mass ratioOrdered By: Tequila Smith on 01-16-2022 Albumin/Globulin [Mass ratio] 1.6 {ratio} [facility] Serum or plasma alkaline kayden sphatase measurement (enzymatic activity/volume)Ordered By: Tequila Smith on 01-16-2022 ALP [Catalytic activity/Vol] 56 U/L 32-92 [facility] Serum or plasma aspartate am inotransferase measurement (enzymatic activity/volume)Ordered By: Tequila Smith on 01-16-2022 AST [Catalytic activity/Vol] 19 U/L 10-42 [facility] Serum or plasma calcium pia urement (mass/volume)Ordered By: Tequila Smith on 01-16-2022 Calcium [Mass/Vol] 9.9 mg/dL 8.2-10.2 [facility] Serum or plasma chloride madison surement (moles/volume)Ordered By: Tequila Smith on 01-16-2022 Chloride [Moles/Vol] 102 mmol/L 95-114 [facility] Serum or plasma glucose pai urement (mass/volume)Ordered By: Tequila Smith on 01-16-2022 Glucose [Mass/Vol] 152 mg/dL 70-100 [facility] Comment on above: ADA recommended refe rence range Random Glucose Reference Range is dependent on time and content of last meal. Glucose of more than 200 mg/dL in a nonstressed, ambulatory subject supports the diagnosis of Diabetes Mellitus. Serum or plasma potassium me asurement (moles/volume)Ordered By: Tequila Smith on 01-16-2022 Potassium [Moles/Vol] 4.0 mmol/L 3.5-5.[address] [facility] Serum or plasma sodium measu rement (moles/volume)Ordered By: Tequila Smith on 01-16-2022 Sodium [Moles/Vol] 138 mmol/L 136-146 [facility] Serum or plasma total biliru bin measurement (mass/volume)Ordered By: Tequila Smith on 01-16-2022 Bilirubin [Mass/Vol] 0.8 mg/dL 0.3-1.2 [facility] Serum or plasma total carbon dioxide measurement (moles/volume)Ordered By: Tequila Smith on 01-16-2022 CO2 [Moles/Vol] 27.8 mmol/L 22.0-30.0 [facility] Serum or plasma urea nitroge n measurement (mass/volume)Ordered By: Tequila Smith on 01-16-2022 Urea nitrogen [Mass/Vol] 15 mg/dL 03-22 [facility] Basophils Auto (Bld) [#/Vol] on 11-22-2020 Basophils (Bld) [#/Vol] 0.1 10*3/uL 0.0-0.2 [facility] Basophils/100 WBC Auto (Bld) on 11-22-2020 Basophils/100 WBC (Bld) 0.9 % F [facility] Blood hemoglobin measurement (mass/volume)on 11-22-2020 Hemoglobin (Bld) [Mass/Vol] 14.5 g/dL 11.8-15.4 [facility] Blood leukocytes automated c ount (number/volume)on 11-22-2020 WBC (Bld) [#/Vol] 7.2 10*3/uL 4.5-11.0 [facility] Body fluid albumin measureme nt (mass/volume)on 11-22-2020 Albumin (Body fld) [Mass/Vol] 3.7 g/dL 3.2-5.5 [facility] Cholesterol [Mass/volume] in Serum or Plasmaon 11-22-2020 Cholesterol [Mass/Vol] 191 mg/dL 140-200 [facility] Comment on above: Chol less than 200 m g/dl low riskChol 201-239 mg/dl borderline riskChol 240 mg/dl and greater high risk Cholesterol in LDL Calc [Mas s/Vol]on 11-22-2020 Cholesterol in LDL [Mass/Vol] 130 mg/dL 0-100 [facility] Comment on above: LDL ATP III CLASSIFI CATIONLDL less than 100 mg/dL OptimalLDL 100-129 mg/dL Near or above optimalLDL 130-159 mg/dL Borderline highLDL 160-189 mg/dL HighLDL greater than 189 mg/dL Very high Cholesterol in VLDL Calc [Ma ss/Vol]on 11-22-2020 Cholesterol in VLDL [Mass/Vol] 19 mg/dL [facility] Creatinine and Glomerular fi ltration rate.predicted panel (S/P/Bld)on 11-22-2020 Creatinine [Mass/Vol] 0.96 mg/dL 0.44-1.03 [facility] Eosinophils Auto (Bld) [#/Vo l]on 11-22-2020 Eosinophils (Bld) [#/Vol] 0.5 10*3/uL 0.0-0.45 [facility] Eosinophils/100 WBC Auto (Bl d)on 11-22-2020 Eosinophils/100 WBC (Bld) 6.9 % [facility] Erythrocyte distribution wid th Auto (RBC) [Ratio]on 11-22-2020 Erythrocyte distribution width (RBC) [Ratio] 14.2 % 11.9-15.3 [facility] Erythrocyte sedimentation ra te by Photometric methodon 11-22-2020 ESR Photometric method (Bld) [Velocity] 21 mm/hr 0-29 [facility] Estimated glomerular filtrat ion rate (GFR) non- Americanon 11-22-2020 GFR/1.73 sq M.predicted among non-blacks MDRD (S/P/Bld) [Vol rate/Area] 57 mL/Min [facility] Globulin Calc (S) [Mass/Vol] on 11-22-2020 Globulin (S) [Mass/Vol] 2.7 g/dL F [facility] Hematocrit Auto (Bld) [Volum e fraction]on 11-22-2020 Hematocrit (Bld) [Volume fraction] 41.7 % 34.0-46.4 [facility] Laboratory - Hematology and Cell countson 11-22-2020 Nucleated RBC/100 WBC (Bld) [Ratio] 0.3 % 0-0.5 [facility] Lymphocytes Auto (Bld) [#/Vo l]on 11-22-2020 Lymphocytes (Bld) [#/Vol] 1.4 10*3/uL 1.00-4.8 [facility] Lymphocytes/100 WBC Auto (Bl d)on 11-22-2020 Lymphocytes/100 WBC (Bld) 19.7 % [facility] MCH Auto (RBC) [Entitic mass ]on 11-22-2020 MCH (RBC) [Entitic mass] 32.5 pg 24.7-34.3 [facility] MCHC Auto (RBC) [Mass/Vol]on 11-22-2020 MCHC (RBC) [Mass/Vol] 34.8 g/dL 32.0-35.0 [facility] MCV Auto (RBC) [Entitic vol] on 11-22-2020 MCV (RBC) [Entitic vol] 93.3 fL 80-[address] [facility] Monocytes Auto (Bld) [#/Vol] on 11-22-2020 Monocytes (Bld) [#/Vol] 0.8 10*3/uL 0.0-0.8 [facility] Monocytes/100 WBC Auto (Bld) on 11-22-2020 Monocytes/100 WBC (Bld) 10.8 % F [facility] Neutrophils Auto (Bld) [#/Vo l]on 11-22-2020 Neutrophils (Bld) [#/Vol] 4.5 10*3/uL 1.8-7.7 [facility] Neutrophils/100 WBC Auto (Bl d)on 11-22-2020 Neutrophils/100 WBC (Bld) 61.7 % [facility] No Panel Informationon 11-22 Estimated GFR () > 60 mL/Min [facility] Comment on above: GFR estimated refere nce range: According to KDOQI guidelines, <60 ml/min/1.73m2 is sufficient to diagnose a patient with chronic kidney disease. Pharmacy Creatinine Clearance (Chem N/A [facility] Platelet mean volume Auto (B ld) [Entitic vol]on 11-22-2020 Platelet mean volume (Bld) [Entitic vol] 9.9 fL 6.3-10.7 [facility] Platelets Auto (Bld) [#/Vol] on 11-22-2020 Platelets (Bld) [#/Vol] 228 10*3/uL 150-450 [facility] Protein [Mass/volume] in Ser um or Plasmaon 11-22-2020 Protein [Mass/Vol] 6.4 g/dL 6.1-7.9 [facility] RBC Auto (Bld) [#/Vol]on RBC (Bld) [#/Vol] 4.47 10*6/uL 3.60-5.00 [facility] Serum or plasma alanine almazan otransferase measurement without P-5'-P (enzymatic activion 11-22-2020 ALT No additional P-5'-P [Catalytic activity/Vol] 25 U/L 10-60 [facility] Serum or plasma albumin/glob ulin mass ratioon 11-22-2020 Albumin/Globulin [Mass ratio] 1.4 {ratio} [facility] Serum or plasma alkaline kayden sphatase measurement (enzymatic activity/volume)on 11-22-2020 ALP [Catalytic activity/Vol] 60 U/L 32-92 [facility] Serum or plasma aspartate am inotransferase measurement (enzymatic activity/volume)on 11-22-2020 AST [Catalytic activity/Vol] 18 U/L 10-42 [facility] Serum or plasma calcium pia urement (mass/volume)on 11-22-2020 Calcium [Mass/Vol] 9.5 mg/dL 8.2-10.2 [facility] Serum or plasma chloride madison surement (moles/volume)on 11-22-2020 Chloride [Moles/Vol] 104 mmol/L 95-114 [facility] Serum or plasma glucose pia urement (mass/volume)on 11-22-2020 Glucose [Mass/Vol] 127 mg/dL 70-100 [facility] Comment on above: ADA recommended refe rence rangeRandom Glucose Reference Range is dependent on time and content of last meal. Glucose of more than 200 mg/dL in a nonstressed, ambulatory subject supports the diagnosis of Diabetes Mellitus. Serum or plasma high density lipoprotein (HDL) cholesterol measurementon 11-22-2020 Cholesterol in HDL [Mass/Vol] 41 mg/dL 35-85 [facility] Comment on above: HDL CHOL ATP-III CLA SSIFICATION Cardiovascular RiskHDL > or equal to 60 mg/dL LOWHDL < 40 mg/dL HIGH Serum or plasma potassium me asurement (moles/volume)on 11-22-2020 Potassium [Moles/Vol] 3.6 mmol/L 3.5-5.1 [facility] Serum or plasma sodium measu rement (moles/volume)on 11-22-2020 Sodium [Moles/Vol] 140 mmol/L 136-146 [facility] Serum or plasma total biliru bin measurement (mass/volume)on 11-22-2020 Bilirubin [Mass/Vol] 0.9 mg/dL 0.3-1.2 [facility] Serum or plasma total carbon dioxide measurement (moles/volume)on 11-22-2020 CO2 [Moles/Vol] 25.0 mmol/L 22.0-30.0 [facility] Serum or plasma total choles terol/high density lipoprotein (HDL) cholesterol mass juju 11-22-2020 Cholesterol.total/Choles terol in HDL [Mass ratio] 4.7 {ratio} [facility] Serum or plasma urea nitroge n measurement (mass/volume)on 11-22-2020 Urea nitrogen [Mass/Vol] 23 mg/dL 9- [facility] Triglyceride [Mass/volume] i n Serum or Plasmaon 11-22-2020 Triglyceride [Mass/Vol] 98 mg/dL 35-[address] [facility] Comment on above: TRIG ATP III CLASSIF ICATIONTRIG less than 150 mg/dL NormalTRIG 150-199 mg/dL Borderline highTRIG 200-500 mg/dL High TRIG greater than 500 mg/dL Very highStandard traceable to the Center for Disease Conrtrol and Prevention (CDC) test method. Medication Managementon Medication Management Entered by Patrizia Lugo on August 31, 2019 10:18:10 EST From: Patrizia Wells To: JOSIERHIANNA ARTURO [id number] Sent: 08/31/2019 10:18:10 EST Subject: Medication Management Not Approved: Patient never under Prescriber care hydrochlorothiazide-li sinopril (LISINOPRIL-HCTZ 20-25 MG TAB) TAKE ONE TABLET BY MOUTH DAILY Qty: 90 tab(s) Days Supply: 90 Refills: 0 Substitutions Allowed Route To Pharmacy - [place] [id number] Signed by Patrizia Wells Patient matched by Aquiles Olivera on 08/30/2019 15:33:16 EST From: [place] [address] To: Ryan Fuentes MD Sent: August 30, 2019 5:28:16 AM RN BUILDING Subject: Medication Management Due: August 31, 2019 5:28:16 AM RN BUILDING On Hold Pending Signature Drug: hydrochlorothiazide-li sinopril (Zestoretic 20 mg-25 mg oral tablet) TAKE ONE TABLET BY MOUTH DAILY Quantity: 90 tab(s) Days Supply: 0 Refills: 0 Substitutions Allowed Notes from Pharmacy: Dispensed Drug: hydrochlorothiazide-li sinopril (Lisinopril/HCTZ 20/25 mg) TAKE ONE TABLET BY MOUTH DAILY Quantity: 90 tab(s) Days Supply: 90 Refills: 0 Substitutions Allowed Notes from Pharmacy: Normal [facility] Encounters Encounter Date Encounter Type Care Provider Facility Start: 03-26-2024 End: 03-26-2024 ambulatory Abhishek R Dolce Facility:[facility] Start: 03-19-2024 End: 03-19-2024 ambulatory Abhishek R Dolce Facility:[facility] Start: 03-05-2024 End: 03-05-2024 ambulatory Abhishek R Dolce Facility:[facility] Start: 02-27-2024 End: 02-27-2024 ambulatory Abhishek R Dolce Facility:[facility] Start: 02-20-2024 End: 02-20-2024 ambulatory Abhishek R Dolce Facility:[facility] Start: 02-06-2024 End: 02-06-2024 ambulatory Abhishek R Dolce Facility:[facility] Start: 01-30-2024 End: 01-30-2024 ambulatory Abhishek R Dolce Facility:[facility] Start: 01-23-2024 End: 01-23-2024 ambulatory Abhishek R Dolce Facility:[facility] Start: 01-16-2024 End: 01-16-2024 ambulatory Abhishek R Dolce Facility:[facility] Start: 01-09-2024 End: 01-09-2024 ambulatory Abhishek R Dolce Facility:[facility] Start: 12-26-2023 End: 12-26-2023 ambulatory Abhishek R Dolce Facility:[facility] Start: 12-19-2023 End: 12-19-2023 ambulatory Abhishek R Dolce Facility:[facility] Start: 12-17-2023 End: 12-17-2023 ambulatory PA Nicole Schrader Facility:[facility] Start: 12-12-2023 End: 12-12-2023 ambulatory Abhishek R Dolce Facility:[facility] Start: 2023 End: 2023 ambulatory Mahendra Lundy Facility:[facility] Start: 12-05-2023 End: 12-05-2023 ambulatory Abhishek R Dolce Facility:[facility] Start: 12-02-2023 End: 12-02-2023 ambulatory Abhishek R Dolce Facility:[facility] Start: 11-28-2023 End: 11-28-2023 ambulatory CHELI Schrader Facility:[facility] Start: 11-25-2023 End: 11-25-2023 ambulatory Abhishek R Dolce Facility:[facility] Start: 11-21-2023 End: 11-21-2023 ambulatory Abhishek R Dolce Facility:[facility] Start: 11-18-2023 End: 11-18-2023 ambulatory Abhishek R Dolce Facility:[facility] Start: 11-14-2023 End: 11-14-2023 ambulatory Abhishek R Dolce Facility:[facility] Start: 11-11-2023 End: 11-11-2023 ambulatory Abhishek R Dolce Facility:[facility] Start: 11-07-2023 End: 11-07-2023 ambulatory Ryan Fuentes Facility:[facility] Start: 11-04-2023 End: 11-04-2023 ambulatory Abhishek R Dolce Facility:[facility] Start: 10-31-2023 End: 10-31-2023 ambulatory Abhishek R Dolce Facility:[facility] Start: 10-28-2023 End: 10-28-2023 ambulatory Abhishek R Dolce Facility:[facility] Start: 10-24-2023 End: 10-24-2023 ambulatory Abhishek R Dolce Facility:[facility] Start: 10-16-2023 End: 10-16-2023 ambulatory PA Nicole Schrader Facility:[facility] Start: 10-14-2023 End: 10-14-2023 ambulatory Abhishek R Dolce Facility:[facility] Start: 10-10-2023 End: 10-10-2023 ambulatory Abhishek R Dolce Facility:[facility] Start: 10-01-2023 End: 10-01-2023 ambulatory Nicole Schrader Facility:[facility] Start: 10-01-2023 End: 10-01-2023 ambulatory MD Ryan Fuentes Work Phone: [facility] Work Phone: Start: 10-01-2023 End: 10-01-2023 Patient encounter procedure MD Ryan Fuentes Work Phone: [facility] [place] Work Phone: Start: 09-30-2023 End: 09-30-2023 ambulatory PA Nicole Schrader Facility:[facility] Start: 09-26-2023 End: 09-26-2023 ambulatory PA Nicole Schrader Facility:[facility] Start: 09-22-2023 End: 09-22-2023 ambulatory Abhishek R Dolce Facility:[facility] Start: 09-18-2023 End: 09-18-2023 ambulatory PA Nicole Schrader Facility:[facility] Start: 09-16-2023 End: 09-16-2023 ambulatory PA Nicole Schrader Facility:[facility] Start: 09-15-2023 End: 09-15-2023 ambulatory Ryan Fuentes Facility:[facility] Start: 09-15-2023 End: 09-15-2023 ambulatory Enrique Alfredo Facility:[facility] Start: 09-04-2023 ambulatory Enrique Alfredo Facility: [facility] Start: 09-01-2023 End: 09-01-2023 ambulatory Enrique Alfredo Facility: [facility] Start: 09-01-2023 End: 09-01-2023 ambulatory Enrique Alfredo Facility:[facility] Start: 08-18-2023 End: 08-18-2023 ambulatory Ryan Leach Alfredo Facility: [facility] Start: 08-18-2023 End: 08-18-2023 ambulatory Enrique Alfredo Facility:[facility] Start: 08-04-2023 End: 08-04-2023 ambulatory Ryan Leach Alfredo Facility: [facility] Start: 08-04-2023 End: 08-04-2023 ambulatory Ryan Leach Alfredo Facility:[facility] Start: 07-28-2023 End: 07-28-2023 Emergency department patient visit Nico Hardeep Seema Facility:[facility] Start: 07-18-2023 End: 07-18-2023 ambulatory Ryan Fuentes Facility:[facility] Start: 07-18-2023 End: 07-18-2023 ambulatory Ryan Leach Alfredo Facility: [facility] Start: 07-03-2023 End: 07-03-2023 ambulatory Ryan Leach Alfredo Facility: [facility] Start: 07-03-2023 End: 07-03-2023 ambulatory Enrique Alfredo Facility:[facility] Start: 01-01-2023 End: 01-01-2023 ambulatory Verna Forman Facility:[facility] Start: 01-01-2023 End: 01-01-2023 ambulatory MD Ryan Fuentes Work Phone: [facility] Work Phone: Start: 01-01-2023 End: 01-01-2023 Patient encounter procedure MD Ryan Fuentes Work Phone: [facility] [place] Work Phone: Start: 08-12-2022 End: 08-12-2022 ambulatory MD Ryan Fuentes Work Phone: [facility] Work Phone: Start: 08-12-2022 End: 08-12-2022 Patient encounter procedure MD Ryan Fuentes Work Phone: [facility] [place] Work Phone: Start: 04-17-2022 End: 04-17-2022 ambulatory MD Ryan Fuentes Work Phone: [facility] Work Phone: Start: 04-17-2022 End: 04-17-2022 Patient encounter procedure MD Ryan Fuentes Work Phone: [facility] [place] Start: 01-16-2022 End: 01-16-2022 Patient encounter procedure MD Ryan Fuentes Work Phone: [facility] [place] Start: 12-06-2020 End: 12-06-2020 Patient encounter procedure Ryan Fuentes Work Phone: -Pre-Surgical Testing Start: 11-22-2020 End: 11-22-2020 Patient encounter procedure Ryan Fuentes Work Phone: -Lab [place] Start: 11-20-2020 End: 11-20-2020 Patient encounter procedure Ryan Fuentes Work Phone: -MRI [address] Start: 09-26-2020 End: 09-26-2020 Patient encounter procedure Ryan Fuentes Work Phone: -XRay [address] Procedures Date Procedure Procedure Detail Performing Clinician Start: 11-20-2020 MRI of left hand Ryan Fuentes Work Phone: Start: 09-26-2020 Plain X-ray of left hand Ryan Fuentes Work Phone: Plan of Treatment Date Care Activity Detail Author Start: 10-01-2023 [facility] Glucose measurement estimated from glycated hemoglobin [facility] Immunizations Immunization Date Immunization Notes Care Provider Pierce james 09-09-2020 COVID-19 mRNA,EOM483 b2 (Pfizer) Ryan Fuentes Work Phone: [facility] 08-19-2020 COVID-19 mRNA,NNS238 b2 (Pfizer) Ryan Fuentes Work Phone: [facility] Payers Date Payer Category Payer Self-pay [id number] 2022 Medicare [id number] 2022 Private Health Insurance [id number] 1950 Unknown [id number] 2.16.8 40.1.177795.3.579.2. 1950 Unknown [id number] 2.16.8 40.1.871587.3.579.2. 1950 Unknown [id number] 2.16.8 40.1.342967.3.579.2. 1950 Unknown [id number] 2.16.8 40.1.643696.3.579.2. 1950 Unknown [id number] 2.16.8 40.1.587953.3.579.2. 1950 Unknown [id number] 2.16.8 40.1.236131.3.579.2. 1948 Unknown [id number] 2.16.8 40.1.863294.3.579.2. 1948 Unknown [id number] 2.16.8 40.1.875651.3.579.2. 1948 Unknown [id number] 2.16.8 40.1.849361.3.579.2 1950 Unknown [id number] 2.16.8 40.1.230444.3.579.2. 1948 Unknown [id number] 2.16.8 40.1.516734.3.579.2. 1950 Unknown [id number] 2.16.8 40.1.204209.3.579.2. 1948 Unknown [id number] 2.16.8 40.1.947239.3.579.2. 1948 Unknown [id number] 2.16.8 40.1.417900.3.579.2. 1948 Unknown [id number] 2.16.8 40.1.703420.3.579.2. 1948 Unknown [id number] 2.16.8 40.1.151344.3.579.2. 1948 Unknown [id number] 2.16.8 40.1.647793.3.579.2 1948 Unknown [id number] 2.16.8 40.1.236091.3.579.2 1948 Unknown [id number] 2.16.8 40.1.623021.3.579.2. 1948 Unknown [id number] 2.16.8 40.1.498082.3.579.2. 1948 Unknown [id number] 2.16.8 40.1.371663.3.579.2 1950 Unknown [id number] 2.16.8 40.1.788717.3.579.2. 1948 Unknown [id number] 2.16.8 40.1.485077.3.579.2. 1948 Unknown [id number] 2.16.8 40.1.267892.3.579.2. 1948 Unknown [id number] 2.16.8 40.1.781398.3.579.2. 1948 Unknown [id number] 2.16.8 40.1.146000.3.579.2. 1948 Unknown [id number] 2.16.8 40.1.316365.3.579.2. 1948 Unknown [id number] 2.16.8 40.1.482941.3.579.2 1948 Unknown [id number] 2.16.8 40.1.396031.3.579.2 1948 Unknown [id number] 2.16.8 40.1.832523.3.579.2 1948 Unknown [id number] 2.16.8 40.1.241664.3.579.2 1948 Unknown [id number] 2.16.8 40.1.583364.3.579.2 1948 Unknown [id number] 2.16.8 40.1.590563.3.579.2 1948 Unknown [id number] 2.16.8 40.1.045496.3.579.2 1948 Unknown [id number] 2.16.8 40.1.884373.3.579.2 1948 Unknown [id number] 2.16.8 40.1.633038.3.579.2 1948 Unknown [id number] 2.16.8 40.1.666356.3.579.2 1948 Unknown [id number] 2.16.8 40.1.535335.3.579.2 1948 Unknown [id number] 2.16.8 40.1.562699.3.579.2 1948 Unknown [id number] 2.16.8 40.1.600649.3.579.2 1948 Unknown [id number] 2.16.8 40.1.352915.3.579.2.8 1948 Unknown [id number] 2.16.8 40.1.630207.3.579.2.8 1948 Unknown [id number] 2.16.8 40.1.843051.3.579.2. 1948 Unknown [id number] 2.16.8 40.1.835806.3.579.2. 1948 Unknown [id number] 2.16.8 40.1.904093.3.579.2. 1948 Unknown [id number] 2.16.8 40.1.821683.3.579.2.8 1948 Unknown [id number] 2.16.8 40.1.835907.3.579.2. 1948 Unknown [id number] 2.16.8 40.1.686743.3.579.2.8 1948 Unknown [id number] 2.16.8 40.1.822400.3.579.2.8 1950 Unknown [id number] 2.16.8 40.1.212097.3.579.2. Unknown [id number] 2.16.8 40.1.674361.3.579.2.531 Social History Date Type Detail Facility Start: 12-06-2020 End: 12-14-2020 Tobacco smoking status NHIS Ex-smoker (finding) [facility] Start: 1950 Sex Assigned At Female F [facility] Medication management note 03-17-2024 Note Date & Type Note Facility 03-17-2024 Note [facility] Medication management note 05-26-2023 Note Date & Type Note Facility 05-26-2023 Note [facility] Evaluation note Note Date & Type Note Facility Evaluation note No assessment information availa ble [facility] Summary Purpose Family History No Family History Records Found Relationship Condition Age at Onset Recorded Date/T heather Not Specified Bronchitis Unknown father Diabetes mellitus Unknown sister Diabetes mellitus Unknown Malignant neoplasm Unknown History of kidney transplant Unknown Advance Directives No Advanced Directives Records Found Advance Directive Response Recorded Date/ Time Advance Directives No February 10:24am Advance Directive Response Recorded Date/ Time Advance Directives No February 9:24am Chief Complaint and Reason for Visit Chief Complaint Left finger pain,Lu d pain s63.659a m06.9 M05.79 M15.0 Z79.899 HTN Hyperlipidemia Finger Pain Chief Complaint m05.79 m15.0 z79.899 Chief Complaint E66.0;I87.319;T14.8X X8 Additional Source Comments INFORMATION SOURCE (unrecogn ized section and content) DATE CREATED AUTHOR 08/31/2019 [facility] DATE CREATED AUTHOR AUTHOR'S ORGANIZ ATION 10/03/2023 [facility] DATE CREATED AUTHOR AUTHOR'S ORGANIZ ATION 03/28/2024 [facility] Goals (unrecognized section and content) Goals may be documented in a n alternate sectionGoals may be documented in an alternate sectionGoals may be documented in an alternate sectionGoals may be documented in an alternate sectionGoals may be documented in an alternate sectionGoals may be documented in an alternate section Care Teams (unrecognized sec tion and content) Team Status: Inactive Member Role Status Dates Ryan Fuentes MD Primary Care Provider Active Tequila Smith APRN Attending Provider Active Team Status: Active Member Role Status Dates Ryan Fuentes MD Primary Care Provider Active Team Status: Inactive Member Role Status Dates Ryan Fuentes MD Primary Care Provider Active ALEXIA Bledsoe Attending Provider Active Team Status: Inactive Member Role Status Dates Ryan Fuentes MD Primary Care Provide r, Referring Provider Active Start: October 01, 2023 End: October 01, 2023 Nicole Schrader PA-C Attending Provider Active Start: October 01, 2023 End: October 01, 2023 FOR RECORDS PERTAINING TO PATIENTS WHO ARE OR HAVE BEEN ENROLLED IN A CHEMICAL DEPENDENCY/SUBSTANCEABUSE PROGRAM, SOME INFORMATION MAY BE OMITTED. This clinical summary was aggregated from multiple sources. Caution should be exercised in using it in the provision of clinical care. This summary normalizes information from multiple sources, and as a consequence, information in this document may materially change the coding, format and clinical context of patient data. In addition, data may be omitted in some cases. CLINICAL DECISIONS SHOULD BE BASED ON THE PRIMARY CLINICAL RECORDS. [facility] [facility]. provides no warranty or guarantee of the accuracy or completeness of information in this document.
[2024-03-29 11:35] VITALS: BMI 46.5
--- NOTE | 2024-03-29 13:16 | W.VEIN ---
Discharge Plan Discharge Disposition: Home, Self-Care Outpatient Diagnostics: VC Endovenous Perf Ablation RT (Routine) Timeframe: 2 Months Facility: [facility] - Location: Vein Center Ordered By: Jordi Watters Follow Up Appointments: 04/19/24 Plan of Treatment: EVLT of right leg perforators Tumescent Anesthesia: None Buffered Local Anesthesia: 20 mL of 1% Lidocaine Buffered Print Language: Croatian Discharge Date/Time: 03/29/24 13:17
== END 2024-03-29 13:17 | disposition home or self-care (01) ==
PROVIDERS: PCP Radiology Diagnostic Radiology; Visit Provider Radiology Diagnostic Radiology
DX: I80.02 Phlebitis and thrombophlebitis of superficial vessels of left lower extremity (principal)
CPT/HCPCS: 93971; G0463

== ENCOUNTER 2024-06-07 13:21 | Outpatient (OUT) | payer MEDICARE, OTHER, SELFPAY ==
--- NOTE | 2024-06-04 14:19 | V.VEINS.HP ---
Vital Signs 06/07/24 13:41 BP 140/70 BP Location Left Brachial BP Position Sitting BP Cuff Size Large Adult BP Source Manual Cuff Respiration 16 Pulse 90 Pulse Source Monitor Pulse Oximetry (%) 99 Oxygen Delivery Method Room Air Comment The patient's blood pressure is elevated. Varicose Veins Patient in today for EVLT of right leg perforating veins Jordi Crystal MD personally performed the services described in this documentation, as scribed by Maciel Hall RN in my presence and it is both accurate and complete. Maciel Crystal RN, am scribing for, and in the presence of, Dr. Jordi Watters and in the presence of the patient. thigh: bilateral (right> left leg), knee: bilateral, calf: bilateral, ankle: bilateral and shafer: bilateral aching, cramping, dull and tender 2 5 years Worsened in recent months: Yes standing and walking analgesics, elevating extremities, compression stockings and exercise Reports muscle spasms of leg, fatigue, heaviness, limb pain, edema and leg edema History of lower extremity trauma: No Superficial thrombophlebitis: No Family history of varicose veins: yes Has patient had previous lower extremity venous surgery: No Patient has previously received the following treatment(s) for lower extremity varicose veins: Reports none Does patient have a history of : yes Does patient intend to have future pregnancies: no Has patient had lower extremity venous scan with relux testing: Yes Support hose used: Yes Problems walking or doing physical activity: Yes How does it affect you: often has to stop activity rest and elevate Do you walk much: Yes Do you stand much: Yes Review of Systems ROS Narrative Jordi Crystal MD personally performed the services described in this documentation, as scribed by Maciel Hall RN in my presence and it is both accurate and complete. Maciel Crystal RN, am scribing for, and in the presence of, Dr. Jordi Watters and in the presence of the patient. Status of ROS 10 or more systems reviewed and unremarkable except as noted in history and below Cardiovascular Reports: edema Integumentary/Breast Reports: itching, redness, skin pain, skin tenderness, skin swelling, new lesion, changing lesion, non-healing lesion and changes in skin color Neurological Reports: numbness in extremities and weakness in extremities Hematologic/Lymphatic Reports: easy bruising and easy bleeding PFSH [facility] Medical History (Updated 03/29/24 @ 08:11 by Maribell Freire) Phlebitis and thrombophlebitis of superficial vessels of right lower extremity ?I80.01 - Phlebitis and thrombophlebitis of superficial vessels of right lower extremity (ICD-10) Osteoarthritis ?M19.90 - Unspecified osteoarthritis, unspecified site (ICD-10) Rheumatoid arthritis ?M06.9 - Rheumatoid arthritis, unspecified (ICD-10) Coronary artery disease ?I25.10 - Atherosclerotic heart disease of [place] coronary artery without angina pectoris (ICD-10) Asthma ?J45.909 - Unspecified asthma, uncomplicated (ICD-10) Hypertension ?I10 - Essential (primary) hypertension (ICD-10) Varicose veins of bilateral lower extremities with pain ?I83.813 - Varicose veins of bilateral lower extremities with pain (ICD-10) Surgical History (Updated 06/07/24 @ 13:44 by Maciel Hall) Status post laser ablation of incompetent vein ?Z98.890 - Other specified postprocedural states (ICD-10) Status post laser ablation of incompetent vein ?Z98.890 - Other specified postprocedural states (ICD-10) History of tonsillectomy and adenoidectomy ?Z90.89 - Acquired absence of other organs (ICD-10) History of bilateral knee replacement ?Z96.653 - Presence of artificial knee joint, bilateral (ICD-10) History of appendectomy ?Z90.49 - Acquired absence of other specified parts of digestive tract (ICD-10) H/O: hysterectomy ?Z90.710 - Acquired absence of both cervix and uterus (ICD-10) Family History (Updated 03/18/24 @ 08:52 by Maciel Hall) Other Family history of COPD (chronic obstructive pulmonary disease) Family history of diabetes mellitus Kidney failure Social History (Updated 03/18/24 @ 08:52 by Maciel Hall) Within the past year, how often did you have a drink containing alcohol: never Score interpretation: A score less than 3 is consistent with normal alcohol consumption. Smoking status: Never smoker Non-prescribed substance use: denies use Meds Home Medications and Allergies Home Medications ?Medication ?Instructions ?Recorded ?Confirmed ?Type amlodipine 10 mg tablet 10 mg PO DAILY 03/18/24 03/18/24 History calcium 200 mg (carbonate, tab PO 03/18/24 History citrate)-magnesium 50 mg (as oxide) tablet folic acid 1 mg tablet 1,000 mcg PO DAILY 03/18/24 03/18/24 History furosemide 20 mg tablet (Lasix) 20 mg PO DAILY 03/18/24 03/18/24 History lisinopril 20 mg tablet 10 mg PO DAILY 03/18/24 03/18/24 History meloxicam 15 mg tablet 15 mg PO DAILY 03/18/24 03/18/24 History methotrexate 2.5 mg/mL oral 2.5 mg PO DAILY 03/18/24 03/18/24 History solution ofloxacin .Route 03/18/24 History potassium chloride 10 mEq 10 meq PO DAILY 03/18/24 03/18/24 History tablet,extended release (Klor-Con) Allergies Allergy/AdvReac Type Severity Reaction Status Date / Time sulfamethoxazole (From Allergy Intermediate Unknown Verified 03/18/24 08:58 Bactrim) trimethoprim (From Bactrim) Allergy Intermediate Unknown Verified 03/18/24 08:58 loracarbef (From Lorabid) Allergy Unknown Verified 03/18/24 08:58 statins Allergy Intermediate Joint Pain Uncoded 03/18/24 08:58 Exam Narrative Exam Narrative: Jordi Crystal MD personally performed the services described in this documentation, as scribed by Maciel Hall RN in my presence and it is both accurate and complete. Maciel Crystal RN, am scribing for, and in the presence of, Dr. Jordi Watters and in the presence of the patient. Assessment and Plan Assessment and Plan (1) Varicose veins of bilateral lower extremities with pain: Plan f/u evaluation with physician along with right leg limited u/s Jordi Crystal MD personally performed the services described in this documentation, as scribed by Maciel Hall RN in my presence and it is both accurate and complete. Maciel Crystal RN, am scribing for, and in the presence of, Dr. Jordi Watters and in the presence of the patient. Procedures Procedure Instructions Procedures Plan of care: Risks and benefits of the procedure were discussed at length and informed written consent was obtained.? Time-out completed for verification of correct patient, procedure and site.? Staff present during time-out: Maciel Hall RN,? Jordi Watters MD, Maribell Freire [facility], Time Out Time___06/07/2024 @ 1400____ Patient prepped and procedure performed in usual sterile fashion. Risk of injury related to use of Diode laser and/or laser devices__CR___ ? Serial number of laser used :? [id number] Control panel self test performed, electrical cords in good condition, floor is dry, basin of water available, fire extinguisher in close proximity_CR__ Polycarbonate goggles available and Laser warning signs outside of doors___CR__ Eye protection provided to patient and staff in room_CR___ Use of laser retardant drapes and dull blackened instruments as directed__CR___ Use of nonflammable prep solutions and use of saline soaked sponges to protect tissues as indicated _CR___ Laser operated by Dr. Watters Physician verbal confirmation laser locked in place__CR__ Laser Site #1: dist/med calf Seconds:23 Joules: 184 Laser Site #2 Seconds:23 Joules:186 [place] _8.0___ Pulse continuous ___CR_? Pulse intermittent ___ Evaluated patient for signs and symptoms of electrical injury __CR___ ? Skin clear at insertion site __CR___ Patient tolerated procedure well.? Right leg Coban dressing applied to access site.? Applied right thigh high leg compression stocking. Will return on 06/21/2024 for right leg limited venous ultrasound and exam. IJordi MD personally performed the services described in this documentation, as scribed by Maciel Hall RN in my presence and it is both accurate and complete. I, Maciel Hall RN, am scribing for, and in the presence of, Dr. Jordi Watters and in the presence of the patient.
--- NOTE | 2024-06-04 14:24 | W.VEIN ---
Discharge Plan Discharge Disposition: Home, Self-Care Outpatient Diagnostics: VC Facility EST LMTD (Routine) Timeframe: 2 Weeks Facility: [facility] - Location: Vein Center Ordered By: Jordi Watters VC EXT Venous RT LMTD (Routine) Timeframe: 2 Weeks Facility: [facility] - Location: Vein Center Ordered By: Jordi Watters Follow Up Appointments: 06/21/24 Plan of Treatment: f/u evaluation with physician along with right leg limited u/s Patient Instructions: Endovenous Ablation (DC) Print Language: Syriac Discharge Date/Time: 06/07/24 14:18
--- NOTE | 2024-06-07 13:21 | VEIN_ITS ---
[address] [address] Patient Name: JANN FAULKNER MRN: [id number] date: 1950 Sex: F Assigned Patient Location: Current Patient Location: Accession/Order Number: [id number] Exam Date: 06/07/2024 13:30 Report Date: 06/07/2024 14:28 At the request of: JAIMEE CHRIS Procedure: VC Endovenous Perf Ablation RT EXAMINATION: VC Endovenous Perf Ablation RT COMPARISON: INDICATIONS: I83.813 - Varicose veins of bilateral lower extremities w... OPERATIVE REPORT: Diagnosis: Superficial venous reflux, incompetent perforating veins Procedure: Endovenous laser ablation of the right digital marketing coordinator(s) Procedure: The patient was positioned supine on the table and the leg was prepped and draped to allow for visualization during venous access. A sterile cover was draped over a 16 mhz ultrasound probe. Venous mapping was performed prior to the procedure noting location and size of vessel(s). Traveling Clerk vein 1: Right leg distal medial calf. The diameter of the vein ranged from 3.7 mm's below the muscular fascia to 3.7 mm's at the entry point. Using a 30 gauge needle the entry site was anesthetized with 1 cc of 1% buffered lidocaine. Access was gained percutaneously, with a 21-gauge needle, into the digital marketing coordinator vein under ultrasound guidance. The needle was advanced into the desired position and the pre-measured 400-micron fiber was then inserted into the needle and locked in place. The position of the fiber was imaged with ultrasound guidance. The fiber tip was visualized to be 10 mm from the deep vessel. An anesthetic solution of 5 cc 1% buffered lidocaine was delivered along the course of the vein under ultrasound guidance using a syringe. A final positioning check of the laser fiber tip was performed. The laser was activated by means of a foot-pedal and the fiber and needle were withdrawn together in accordance to the desired joules per treatment area/spot weld. 3 areas/spot welds were performed, and the total number of joules delivered was 184. The total time of energy delivery was 23 seconds. A duplex ultrasound revealed compressibility and flow of the deep system immediately after the procedure. Hemostasis of the access site was achieved and dressed. A 20-30 mm compression stocking over coban was placed on the treated leg. Post-Op instructions were given, and a follow-up appointment was made. Traveling Clerk vein 2: Right leg mid medial calf. The diameter of the vein ranged from 3.6 mm's below the muscular fascia to 3.6 mm's at the entry point. Using a 30 gauge needle the entry site was anesthetized with 1 cc of 1% buffered lidocaine. Access was gained percutaneously, with a 21-gauge needle, into the digital marketing coordinator vein under ultrasound guidance. The needle was advanced into the desired position and the pre-measured 400-micron fiber was then inserted into the needle and locked in place. The position of the fiber was imaged with ultrasound guidance. The fiber tip was visualized to be 10 mm from the deep vessel. An anesthetic solution of 5 cc 1% buffered lidocaine was delivered along the course of the vein under ultrasound guidance using a syringe. A final positioning check of the laser fiber tip was performed. The laser was activated by means of a foot-pedal and the fiber and needle were withdrawn together in accordance to the desired joules per treatment area/spot weld. 3 areas/spot welds were performed, and the total number of joules delivered was 186. The total time of energy delivery was 23 seconds. A duplex ultrasound revealed compressibility and flow of the deep system immediately after the procedure. Hemostasis of the access site was achieved and dressed. A 20-30 mm compression stocking over coban was placed on the treated leg. Post-Op instructions were given, and a follow-up appointment was made. CONCLUSION: 1. Technically successful endovenous laser ablation of 2 lower right leg digital marketing coordinator veins Electronically authenticated by: JAIMEE CHRIS Date: 06/07/2024 14:28
[2024-06-07 13:41] VITALS: BP 140/70; PULSE 90; O2SAT 99
[2024-06-07] MEDS: LIDOCAINE HCL 20 ML, SODIUM BICARBONATE 2 MEQ INJ (14:10)
== END 2024-06-07 14:18 | disposition home or self-care (01) ==
LOC: VC 13:21
PROVIDERS: PCP Radiology Diagnostic Radiology; Visit Provider Radiology Diagnostic Radiology
DX: I83.813 Varicose veins of bilateral lower extremities with pain (principal)
CPT/HCPCS: 36478

== ENCOUNTER 2024-06-21 13:54 | Outpatient (OUT) | payer MEDICARE, OTHER, SELFPAY ==
[2024-06-21 10:21] VITALS: BMI 46.5
--- NOTE | 2024-06-21 10:21 | VEINCLINIC_ITS ---
Vital Signs 06/21/24 10:21 Height 5 ft Weight 108 kg BMI 46.5 Varicose Veins Patient in today for follow up ultrasound of right lower extremity following EVLT of right leg perforating veins completed on 06/07/24. Ryan Cyrstal MD personally performed the services described in this documentation, as scribed by Maribell Freire RDMS in my presence and it is both accurate and complete. Maribell Crystal RDMS am scribing for, and in the presence of, Dr. Ryan Burris and in the presence of the patient. thigh: bilateral (right> left leg), knee: bilateral, calf: bilateral, ankle: bilateral and shafer: bilateral aching, cramping, dull and tender 2 5 years Worsened in recent months: Yes standing and walking analgesics, elevating extremities, compression stockings and exercise Reports muscle spasms of leg, fatigue, heaviness, limb pain, edema and leg edema History of lower extremity trauma: No Superficial thrombophlebitis: No Family history of varicose veins: yes Has patient had previous lower extremity venous surgery: No Patient has previously received the following treatment(s) for lower extremity varicose veins: Reports none Does patient have a history of : yes Does patient intend to have future pregnancies: no Has patient had lower extremity venous scan with relux testing: Yes Support hose used: Yes Problems walking or doing physical activity: Yes How does it affect you: often has to stop activity rest and elevate Do you walk much: Yes Do you stand much: Yes Review of Systems ROS Narrative Ryan Crystal MD personally performed the services described in this documentation, as scribed by Maribell Freire RDMS in my presence and it is both accurate and complete. Maribell Crystal RDMS, am scribing for, and in the presence of, Dr. Ryan Burris and in the presence of the patient. Status of ROS 10 or more systems reviewed and unremark able except as noted in history and below Cardiovascular Reports: edema Integumentary/Breast Reports: itching, redness, skin pain, skin tenderness, skin swelling, new lesion, changing lesion, non-healing lesion and changes in skin color Neurological Reports: numbness in extremities and weakness in extremities Hematologic/Lymphatic Reports: easy bruising and easy bleeding [facility] Medical History (Updated 06/21/24 @ 14:37 by Maribell Freire) Afib ?I48.91 - Unspecified atrial fibrillation (ICD-10) Phlebitis and thrombophlebitis of superficial vessels of right lower extremity ?I80.01 - Phlebitis and thrombophlebitis of superficial vessels of right lower extremity (ICD-10) Osteoarthritis ?M19.90 - Unspecified osteoarthritis, unspecified site (ICD-10) Rheumatoid arthritis ?M06.9 - Rheumatoid arthritis, unspecified (ICD-10) Coronary artery disease ?I25.10 - Atherosclerotic heart disease of [place] coronary artery without angina pectoris (ICD-10) Asthma ?J45.909 - Unspecified asthma, uncomplicated (ICD-10) Hypertension ?I10 - Essential (primary) hypertension (ICD-10) Varicose veins of bilateral lower extremities with pain ?I83.813 - Varicose veins of bilateral lower extremities with pain (ICD-10) Surgical History (Updated 06/07/24 @ 13:44 by Maciel Hall) Status post laser ablation of incompetent vein ?Z98.890 - Other specified postprocedural states (ICD-10) Status post laser ablation of incompetent vein ?Z98.890 - Other specified postprocedural states (ICD-10) History of tonsillectomy and adenoidectomy ?Z90.89 - Acquired absence of other organs (ICD-10) History of bilateral knee replacement ?Z96.653 - Presence of artificial knee joint, bilateral (ICD-10) History of appendectomy ?Z90.49 - Acquired absence of other specified parts of digestive tract (ICD- 10) H/O: hysterectomy ?Z90.710 - Acquired absence of both cervix and uterus (ICD-10) Family History (Updated 03/18/24 @ 08:52 by Maciel Hall) Other Family history of COPD (chronic obstructive pulmonary disease) Family history of diabetes mellitus Kidney failure Social History (Updated 03/18/24 @ 08:52 by Maciel Hall) Within the past year, how often did you have a drink containing alcohol: never Score interpretation: A score less than 3 is consistent with normal alcohol consumption. Smoking status: Never smoker Non-prescribed substance use: denies use Meds Home Medications and Allergies Home Medications ?Medication ?Instructions ?Recorded ?Confirmed ?Type amlodipine 10 mg tablet 10 mg PO DAILY 03/18/24 03/18/24 History calcium 200 mg (carbonate, tab PO 03/18/24 History citrate)-magnesium 50 mg (as oxide) tablet folic acid 1 mg tablet 1,000 mcg PO DAILY 03/18/24 03/18/24 History furosemide 20 mg tablet (Lasix) 20 mg PO DAILY 03/18/24 03/18/24 History lisinopril 20 mg tablet 10 mg PO DAILY 03/18/24 03/18/24 History meloxicam 15 mg tablet 15 mg PO DAILY 03/18/24 03/18/24 History methotrexate 2.5 mg/mL oral 2.5 mg PO DAILY 03/18/24 03/18/24 History solution ofloxacin .Route 03/18/24 History potassium chloride 10 mEq 10 meq PO DAILY 03/18/24 03/18/24 History tablet,extended release (Klor-Con) apixaban 5 mg tablet (Eliquis) 5 mg PO BID 06/21/24 06/21/24 History metformin 500 mg tablet 500 mg PO DAILY 06/21/24 06/21/24 History metoprolol succinate 50 mg 50 mg PO DAILY 06/21/24 06/21/24 History tablet,extended release 24 hr (Toprol XL) Allergies Allergy/AdvReac Type Severity Reaction Status Date / Time sulfamethoxazole (From Allergy Intermediate Unknown Verified 03/18/24 08:58 Bactrim) trimethoprim (From Bactrim) Allergy Intermediate Unknown Verified 03/18/24 08:58 loracarbef (From Lorabid) Allergy Unknown Verified 03/18/24 08:58 statins Allergy Intermediate Joint Pain Uncoded 03/18/24 08:58 Exam Narrative Exam Narrative: Patient was in the ER 1 week ago due to tachycardia. Patient was told she was in Afib and was put on new medications. Ryan Crystal MD personally performed the services described in this documentation, as scribed by Maribell Freire RDMS in my presence and it is both accurate and complete. Maribell Crystal RDMS, am scribing for, and in the presence of, Dr. Ryan Burris and in the presence of the patient. Results Imaging Venous US: Radiologist's impression: Heat induced thrombus in 2 perforating veins in right leg. Ryan Crystal MD personally performed the services described in this documentation, as scribed by Maribell Freire RDMS in my presence and it is both accurate and complete. Maribell Crystal RDMS, am scribing for, and in the presence of, Dr. Ryan Burris and in the presence of the patient. Assessment and Plan Assessment and Plan (1) Phlebitis and thrombophlebitis of superficial vessels of right lower extremity: Plan Patient is finished with treatment at this time. Follow up in 1-2 years or as needed. IRyan MD personally performed the services described in this documentation, as scribed by Maribell Freire RDMS in my presence and it is both accurate and complete. Maribell Crystal RDMS, am scribing for, and in the presence of, Dr. Ryan Burris and in the presence of the patient.
--- NOTE | 2024-06-21 10:24 | W.VEIN ---
Discharge Plan Discharge Disposition: Home, Self-Care Follow Up Appointments: 1-2 years or as needed Plan of Treatment: Finished with treatment at this time. Follow up as needed or in 1-2 years. Print Language: Vietnamese Discharge Date/Time: 06/21/24 14:38
--- NOTE | 2024-06-21 13:56 | VEIN_ITS ---
Patient Name: JANN FAULKNER MR#: [id number] : 1950 Exam Date: 06/21/2024 Ordering Doctor: DR JAIMEE CHRIS M.D. RADIOLOGY REPORT PROCEDURE: VC EXT VENOUS RT LMTD COMPARISON: VC EXT VENOUS RT LMTD, 03/29/2024. INDICATIONS: I80.01 - Phlebitis and thrombophlebitis of superficial veins right leg TECHNIQUE: Lower extremity almanza scale and Duplex Doppler evaluation of the deep venous system from the inguinal ligament through the calf veins. FINDINGS: REGION: Right lower extremity. THROMBI: Negative for DVT. Heat induced thrombus in two representative phlebotomy services's medial lower right leg. COMPRESSIBILITY: Non-compressible segments corresponding to thrombus FLOW: Areas of no flow corresponding to thrombus OTHER: No significant varicose veins remain. Largest is proximal medial lower leg and measures 2.7 mm. CONCLUSION: 1. Post ablation occlusion of the treated right leg incompetent perforating veins. Dictated by: Ryan Burris MD on 06/21/2024 at 14:29 Approved by: Ryan Burris MD on 06/21/2024 at 14:32
--- NOTE | 2024-06-21 13:56 | VEIN_ITS ---
Patient Name: JANN FAULKNER MR#: [id number] : 1950 Exam Date: 06/21/2024 Ordering Doctor: DR JAIMEE CHRIS M.D. RADIOLOGY REPORT PROCEDURE: [facility] EST [facility] - OFFICE VISIT FOLLOW UP COMPARISON: [facility], 03/29/2024. PROGRESS NOTES: The patient reports marked improvement in right leg presenting symptoms with near complete resolution of the venous stasis ulceration. The patient has worn her compression stocking. The patient has not required oral analgesics. Physical exam demonstrates marked decrease in redness erythema skin thickening and subcutaneous edema of the right leg. The ulceration appears to be approximately 1 cm in diameter. No erythema or warmth to suggest cellulitis or thrombophlebitis. No new ulceration Review of the ultrasound performed the same day demonstrates occlusive thrombus extending throughout the treated right leg incompetent perforating veins. No significant incompetent dilated varicose veins are observed. The patient's treatments are now complete. The patient was asked to return in 1-2 years or earlier if necessary. [facility]: 1. Successful ablation of treated right leg perforating veins 2. Healing right leg ulceration. PLAN: Treatment plan complete. Follow-up as necessary Nurse notes, history and physical were reviewed and confirmed, see attached forms. The nurse was present throughout the physical exam and consultation Dictated by: Ryan Burris MD on 06/21/2024 at 14:40 Approved by: Ryan Burris MD on 06/21/2024 at 14:49
== END 2024-06-21 14:38 | disposition home or self-care (01) ==
LOC: VC 13:54
PROVIDERS: PCP Radiology Diagnostic Radiology; Visit Provider Radiology Diagnostic Radiology
DX: I80.01 Phlebitis and thrombophlebitis of superficial vessels of right lower extremity (principal)
CPT/HCPCS: 93971; G0463